=== PATIENT | male | born 1985 | race Two or more races ===

== ENCOUNTER 2021-09-28 18:44 | Emergency (ER) | payer OTHER, SELFPAY ==
[2021-09-28 18:48] VITALS: BP 143/83; PULSE 91; RESP 16; TEMP 37.1; O2SAT 98; BMI 35.7
--- NOTE | 2021-09-28 20:27 | ED_ITS ---
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 Patient tells me he slipped on the ice causing an abduction injury of the left hip. Patient reports since then he feels a pulling sensation and pain in his left groin. There was no fall to the ground. There was no head strike or loss of consciousness. Related Data Previous Rx's Medication Instructions Recorded cyclobenzaprine 10 mg tablet 10 mg PO TID PRN #10 tab 09/28/21 Allergies Allergy/AdvReac Type Severity Reaction Status Date / Time amoxicillin Allergy Unknown SWELLING Unverified 05/11/20 15:25 [AMOXICILLIN] Amoxicillin Allergy Unknown Uncoded 05/14/12 00:00 Review of Systems Verdana 4l Review of Systems: Verdana 4d Yes all other systems are reviewed and are negative Verdana 4l Constitutional: Verdana 4d Verdana 4d Constitutional: Verdana 4d Reports no additional constitutional complaints, Denies body ache(s), Denies chills, Denies fever(s), Denies headache(s) and Denies weakness Verdana 4l Eyes: Verdana 4d Verdana 4d Eyes: Verdana 4d Reports no additional eye complaints and Denies change in vision Verdana 4l ENT: Verdana 4d Reports system reviewed and no additional complaints, except as documented, Denies dizziness, Denies headache(s), Denies nasal congestion, Denies nasal discharge and Denies neck pain Verdana 4l Cardiovascular: Verdana 4d Verdana 4d Cardiovascular: Verdana 4d Reports no additional cardiovascular complaints, Denies chest pain, Denies leg edema and Denies dyspnea Verdana 4l Respiratory: Verdana 4d Verdana 4d Respiratory: Verdana 4d Reports no additional respiratory complaints, Denies cough and Denies dyspnea Verdana 4l Gastrointestinal: Verdana 4d Verdana 4d Gastrointestinal: Verdana 4d Reports no additional gastrointestinal complaints, Denies abdominal pain, Denies diarrhea, Denies nausea and Denies vomiting Verdana 4l Genitourinary: Verdana 4d Verdana 4d Genitourinary: Verdana 4d Denies urinary incontinence Verdana 4l Musculoskeletal: Verdana 4d Verdana 4d Musculoskeletal: Verdana 4d Reports no additional musculoskeletal complaints, Denies back pain, Denies arthralgias, Denies joint swelling, Denies neck pain, Denies numbness and Denies tingling Verdana 4d Comments: Verdana 4d VerdanaVerdana 4d +groin pain Integumentary/Breasts: Skin/Breast: Reports system reviewed and no additional complaints, except as docu and Denies rash Neurologic: Reports system reviewed and no additional complaints, except as documented, Denies Abnormal speech present, Denies dizziness, Denies headache(s), Denies numbness, Denies tingling and Denies weakness PMFSH Past Medical History Attestation statement: The following information was validated with the patient. Source: old records reviewed and nursing notes reviewed Social History Social History Advance Directives: No Advance Directives Information Provided: No Physical Exam Verdana 4l Vital Signs: Verdana 4d Verdana 4d Vital Signs: Verdana 4d Verdana 4Bd Last Vital Signs Verdana 4d Procurement Assistant New 4d Procurement Assistant New 4d Temp 98.7 F 09/28/21 18:48 Procurement Assistant New 4d Pulse 91 09/28/21 18:48 Procurement Assistant New 4d Resp 16 09/28/21 18:48 BP 143/83 H 09/28/21 18:48 Pulse Ox 98 09/28/21 18:48 BMI result Body Mass Index 35.7 Const: General: cooperative, healthy appearing, comfortable and no acute distress Orientation/consciousness: patient oriented x3 Limitations: no limitations HENMT: Head: Yes normal to inspection Ears: hearing grossly normal bilaterally General nose exam: Normal external nose present Face and sinus: Yes normal facial exam Mouth: Normal oral and palatal mucosa present Throat: Yes posterior oropharynx normal Eyes: General: appearance normal, both eyes and all related structures Pupils: Equal, round and reactive pupils present Neck: Neck: Yes normal visual inspection Chest: Chest palpation & inspection: normal inspection of the chest Resp: Effort & Inspection: normal respiratory effort Auscultation: clear to auscultation bilaterally Cardio: Rate: regular rate Rhythm: regular rhythm Peripheral pulses: Peripheral pulses 2+ throughout GI: Inspection: Yes normal to inspection Palpation (GI): Soft to palpation and nontender Auscultation: normal bowel sounds Back/Spine/Pelvis: Thoracic/Lumbar Spine: thoracic and lumbar spine normal to inspection Skin: General skin exam: no rashes or lesions noted Neuro: General: patient oriented x3, no focal motor deficits and normal sensation to monofilament Cranial nerves: Yes Equal, round and reactive pupils present Cognition (Neuro): normal cognition Speech: No Abnormal speech present Gait exam (Neuro): Normal gait present Motor exam (neuro): 5/5 motor strength present throughout Extrem: Other: There is tenderness of the left hip flexor which is worsened with abduction of the left lower leg, flexion of the knee and raising of the leg and direct palpation There is no bony abnormalities and there is full range of motion with no difficulty. Patient is ambulatory General: Yes normal to inspection Course Course Course Narrative: Exam is consistent with hip flexor strain secondary to slipped at work. There is no bony tenderness and there is full range of motion with no difficulty with ambulation so less likely fracture. Discussed with patient supportive care which includes heat or ice, NSAIDs at home, low-dose muscle relaxant. Recommended follow-up with were connection as this was a work related injury. Reviewed worrisome signs and symptoms of when to return to the emergency department. Comfortable discharge home. MDM - Fall MDM Narrative Medical decision making narrative: strain vs sprain Differential Diagnosis Differential diagnosis: Likely fracture Medical Records Attestation: I reviewed the patient's medical records. Lab Data Attestation: I reviewed the patient's lab results. Discharge Plan Discharge Clinical Impression: Strain of flexor muscle of left hip Patient Disposition: Home, Self-Care Instructions: Groin Strain (ED) Additional Instructions: Heat or ice Gentle stretching Follow-up with work connection [phone] Prescriptions: New cyclobenzaprine 10 mg tablet 10 mg PO TID PRN (Reason: muscle spasm) Qty: 10 0RF Referrals: Physician,Unknown J [Primary Care Provider] - 2 days Stand Alone Forms: Work/School Release Interventions: ED Discharge Assessment Last Done: 09/28/21 20:25
== END 2021-09-28 20:29 | disposition home or self-care (01) ==
PROVIDERS: Emergency Provider Emergency Medicine
DX: S76.012A Strain of muscle, fascia and tendon of left hip, initial encounter (principal); W00.0XXA Fall on same level due to ice and snow, initial encounter; Y93.89 Activity, other specified; Y92.410 Unspecified street and highway as the place of occurrence of the external cause; Y99.0 Civilian activity done for income or pay
CPT/HCPCS: 99283

== ENCOUNTER → 2021-10-01 08:33 | Outpatient (BNVA) | payer OTHER, SELFPAY | PROVIDERS: Visit Provider Internal Medicine | DX: S39.011A Strain of muscle, fascia and tendon of abdomen, initial encounter (principal); W01.0XXA Fall on same level from slipping, tripping and stumbling without subsequent striking against object, initial encounter; Z96.642 Presence of left artificial hip joint | CPT/HCPCS: 99202 ==

== ENCOUNTER → 2022-02-11 14:18 | Outpatient (BNVA) | payer OTHER, SELFPAY | PROVIDERS: Visit Provider Physician Assistant Medical | DX: S16.1XXA Strain of muscle, fascia and tendon at neck level, initial encounter (principal); S39.012A Strain of muscle, fascia and tendon of lower back, initial encounter; V09.00XA Pedestrian injured in nontraffic accident involving unspecified motor vehicles, initial encounter | CPT/HCPCS: 99203 ==

== ENCOUNTER → 2022-02-14 08:08 | Outpatient (BNVA) | payer OTHER, SELFPAY | PROVIDERS: Visit Provider Physician Assistant Medical | DX: S16.1XXA Strain of muscle, fascia and tendon at neck level, initial encounter (principal); S39.012A Strain of muscle, fascia and tendon of lower back, initial encounter; V09.00XA Pedestrian injured in nontraffic accident involving unspecified motor vehicles, initial encounter | CPT/HCPCS: 99213 ==

== ENCOUNTER 2025-02-10 11:26 | Outpatient (AMB) | payer BC, SELFPAY ==
--- OUTSIDE RECORDS SUMMARY | 2025-01-28 05:30 | XMS_ITS | Encounter Summary ---
Author Name [facility] Organization [facility] Address [address] [place] [address] Care Team Providers Care Ward Maid Name Role Phone ALICE BEARDEN Primary Care Provide r Unavailable Insurance Providers: All historical and current Section Date Range: From patient's date of to the date document was created. This section includes the names of all active insurance providers for the patient. Insurance Provider Type of Coverage Plan Name Start of Policy Coverage End of Policy Coverage Group Number Member ID Insurance Provider's Telephone Number Policy Bustos's Name Patient's Relationship to Policy Bustos [place] [facility] Mar 18, 2020 [id number] CARMELITA [employer] BCBS [facility] ORGANIZAT ION [facility] Mar 18, 2020 [id number] CARMELITA [employer] [place] [employer] [place] Aug 25, 2022 [id number] CARMELITA [employer] [place] [employer] [facility] Aug 25, 2022 [id number] [employer]MELITA [employer] Selected Encounter This section includes the information on record at MD for the Encounter. Date/Time Encounter Type Encounter Description Reason Provider Source Jan 28, 2025 09:30 AM Outpatient Encounter PRIMARY CARE/MEDICINE ICD-10-CM Z00.8 Encounter for other general examination ALICE SMITH Ophelia Encounter Template Text not used by MD Assessments - Encounter Diagnoses This section includes the primary and secondary diagnoses documented for the Encounter. Date/Time Primary/Secondary Diagnosis Diagnosis Name Provider Source Jan 29, 2025 11:30 PM PRIMARY Encounter for other general examination ALICE SU EMMETT Jan 29, 2025 11:30 PM SECONDARY Chronic fatigue, unspecified LIO TOPETE,ALICE Hinojosa EMMETT Jan 29, 2025 11:30 PM SECONDARY Hyperlipidemia, unspecified ALICE SU EMMETT Jan 29, 2025 11:30 PM SECONDARY Pain in left hip ALICE SU EMMETT Jan 29, 2025 11:30 PM SECONDARY Sleep apnea, unspecified ALICE SU EMMETT Plan of Treatment: Future Appointments (+ 6 months) and Future Tests (+/- 45 days) The Plan of Treatment section includes future care activities for the [facility] This section includes future appointments and future orders which are active, pending or scheduled. Future Appointments This section includes appointments that were scheduled to occur 6 months from the date of the Encounter, up to a maximum of 20 appointments. The data comes from all MD treatment facilities. Appointment Date/Time Appointment Type Appointme nt Facility Name Feb 10, 2025 01:00 PM AMBUL[facility] Active, Pending, and Scheduled Orders This section includes a listing of several types of active, pending, and scheduled orders, including clinic medications orders, diagnostic test orders, procedure orders and consult orders; where the start date of the order is 45 days before the date of the Encounter or 45 days after the date of theEncounter. The data comes from all MD treatment facilities. Test Date/Time Test Type Test Details Facility Name Jan 28, 2025 12:00 AM Laboratory - Chemi stry Order TOTAL TESTOSTERONE BLOOD (SST-SERUM) [facility] Feb 01, 2025 10:52 AM Consult Order [facility]-SLEEP MEDICINE Cons Ratings Analyst's Choice EMMETT Vital Signs: All taken on the encounter date This section contains inpatient and outpatient Vital Signs collected on the date of the Encounter. Date/Time Temperature Pulse Blood Pressure Respiratory Rate SP02 Pain Height Weight Body Mass Index Source Jan 28, 2025 10:07 AM 98 F 70 /min 112/73 mm[Hg] 99 % 183.4 lb 28 [facility] IELD Encounter Notes: All associated encounter notes This section contains the clinical notes associated to the Encounter. Date/Time Encounter Note(s) Provider Source Jan 29, 2025 11:31 PM ADDENDUM: LOCAL TITLE: Addendum STANDARD TITLE: ADDENDUM DATE OF NOTE: JAN 29, 2025@23:31:15 ENTRY DATE: JAN 29, 2025@23:31:16 AUTHOR: Lubna BEARDEN EXP COSIGNER: URGENCY: STATUS: COMPLETED Please assign patient to PACT 5 /es/ ALICE BEARDEN MD PHYSICIAN Signed: 01/29/2025 23:31 Receipt Acknowledged By: 01/31/2025 14:17 /es/ TAMMY Wolf [facility] Specialist --- Original Document --- 01/28/25 NOTE: Pt is 40 y/o M with PMH of NINO, HL, GERD, allergic rhinitis Initial visit with nm Other providers: --NINO managed by Eleanor Mast #CC: fatigue chronic for last year-he has been complinat with CPAP no bloody , black stools, would like his testosterone checked has 2 children sometimes ED , at one point he was on sildenafil had vasectomy 2020 #obesity - pt lost 70 lb on wegovy (01/2024-07/2024) weight was 174 lb (07/2024) since than monitoring calories 2500/day, using my fitness pal not drinking sugar containg bevarages #NION per pt severe NINO sleep study 2016- would like to get inspire, evaluated by pulmonary at [facility]- referred to ENT using CPAP but finds musk very constricting, hates tubes and patient would prefer treatment of obstructive sleep apnea without CPAP PAST MEDICAL HISTORY: --h/o Obesity lost 75 lbs on wegovy - --HL --Allergic rhinitis --NINO --GERD --Avascular necrosis of hip s/p LEFT THR replacement - Dr. Garces --Low back strain (SNOMED CT [id number]) --Alcohol Abuse quit ETOH 01/2024 when started wegovy PAST SURGICAL HISTORY: --Left THR 2019 --Right knee ACL 2004 -- vasectomy 2020 ALLERGIES: AMOXICILLIN, PHENTERMINE/TOPIRAMATE MEDICATIONS: --OTC naproxen - taking prn for hip bursitis energy drinks: sugar free red bull, protein powder FAMILY HISTORY: --DM: no --Cancer: no --CO: no --CVA: no --Mental Health/addiction: mother d at 53 of drug related seizure dad lives in [place] - not in touch with him one sister 47 obesity, DM2 brother comitted suicide at 42 SOCIAL HISTORY: --Occupation: animal park code enforcement officer in [employer] --Cohabitation: , lives with is --Children: 2 boys (14 and 4 y/o as of 2024) --Diet: well balanced --Exercise: walking limited by bursitis --Caffeine:no --EtOH:quit 01/2024 , h/o excessive use + --Tob: non smoker --MJ: denies --Illicits: denies --Sexual activity: monogamous,female --Eye: UTD --Dental: UTD --Hospitalizations:none recently ROS: Constitutional: no fever/no chills, no ns Eyes: no decreased vision/blurry vision Ears/Nose/Throat: no hearing change Respiratory: no cough/wheezing/SOB Cardiovascular: no CP /palpitations Gastrointestinal: no abdominal pain/bloody/black stools :no dysuria/hematuria/trouble voiding MSK:L hip pain ch Neuro: no dizziness/H/A Skin: no pruritus/rash PHYSICAL EXAM: Blood Pressure: 112/73 (01/28/2025 10:07) Pulse: 70 (01/28/2025 10:07) Respiration: 18 Temperature: 98 F [36.7 C] (01/28/2025 10:07) Patient Weight: BMI 28 183.4 lb [83.19 kg] (01/28/2025 10:07) max weight 250 lbs 01/2024 Gen: pleasant, engaged, NAD Chest/CV: RRR, no m/r/g Lungs: CTAB Abdomen: BS+, Soft, NT, ND Extremities: wwp, no edema LABORATORY (Discussed with the patient): CBC TREND Collection DT Spec WBC RBC HGB HCT MCV MCH PLT 12/24/2024 08:11 BLOOD 4.28 L 5.53 15.3 46.0 83.2 27.7 162 10/08/2023 09:42 BLOOD 6.63 6.19 H 16.8 50.8 H 82.1 27.1 231 07/03/2021 13:00 BLOOD 7.78 5.98 H 16.5 49.0 81.9 L 27.6 226 07/10/2020 08:53 BLOOD 7.09 5.71 H 15.7 48.8 85.5 27.5 211 07/07/2018 09:51 BLOOD 6.57 5.99 H 17.0 50.1 83.6 28.4 184 Collection DT Spec TSH 12/24/2024 08:11 SERUM 0.97 Collection DT Spec GLUCOSE BUN CREATIN Sodium K+/Pot CL CO2 12/24/2024 08:11 SERUM 90 18 1.15 138 4.2 105 24 10/08/2023 09:41 SERUM 108 H 13 1.07 140 4.4 107 24 07/03/2021 13:00 SERUM 82 16 1.12 139 4.2 104 23 07/10/2020 08:53 SERUM 113 H 15 1.13 140 4.1 104 24 07/07/2018 09:51 SERUM 102 H 15 1.12 139 4.3 103 26 LIVER PANEL TREND Collection DT Spec AST ALT T BILI ALK CHERELLE T. PROT ALBUMIN 12/24/2024 08:11 SERUM 25 34 0.6 81 6.4 4.3 04/20/2024 15:17 SERUM 68 H 113 H 0.8 86 6.8 4.4 10/08/2023 09:41 SERUM 27 69 H 0.5 86 7.0 4.1 07/03/2021 13:00 SERUM 23 50 0.9 80 7.3 4.3 07/10/2020 08:53 SERUM comment 63 H 0.3 96 7.0 4.2 LIPID PANEL TREND Collection DT Spec CHOL HDL CHO/HDL LDL-d LDL-c TRIG 12/24/2024 08:11 SERUM 225 H 51 4.4 161 H 63 04/20/2024 15:17 SERUM 153 28 L 5.5 94 157 H 10/08/2023 09:41 SERUM 308 H 35 L 8.8 230 H 215 H 07/03/2021 13:00 SERUM 237 H 35 L 6.8 161 H 203 H 07/10/2020 08:53 SERUM 216 H 36 L 6.0 149 H Reflex to dLDL 364 H TESTOSTERONE Collection DT Specimen Test Name Result Units Ref Range 07/07/2018 09:51 SERUM TestoTo 328.55 ng/dL 220 - 892 VITAMIN D TOTAL: 33.9 ASSESSMENT/PLAN: Pt is 40 y/o M with PMH of NINO, HL, GERD, allergic rhinitis # Chronic fatigue likely multifactorial, inadequately treated obstructive sleep apnea -Check fasting morning testosterone -Encouraged regular CPAP use #NINO f/w [facility] pulmonary [facility] -Consequences of untreated obstructive sleep apnea reviewed with patient #HL: LDL 161 -much improved with intentional weight loss, no family history of early CAD -Continue great weight loss efforts -Heart healthy Mediterranean diet recommended -Recommended 150 minutes of moderate cardio exercise weekly # History of elevated LFTs in the setting of obesity and excessive alcohol use normalized with weight loss, and refraining from alcohol # Left hip pain-s/p left THR 2019 -Scheduled with [facility] later this month Healthcare maintenance: --Lipids: LDL 161 () --Diabetes: --Colon CA (45-75): --Lung CA: --PSA: --AAA (smoker/65): --Influenza (yrly): --COVID: 2020 x2 --PCV20: --PCV23: 2020 --RZV (>50yrs, x2): --TDAP: 2020 --Hep B screen: 2017 immune --Hep C screen: 2023 negative --HIV screen: --DEXA: --Advanced Directives: Comanagement - prefers to have most aspects of health maintenance, chronic condition(s) and medication management to non-VA PCP. Address at next visit: Return to clinic to see me in _12__ months, sooner PRN. Virtual ( ), F2F ( x ) ( )non fasting labs ordered prior to f/u ( )fasting labs ordered prior to f/u ( )no labs needed ( )request labs from outside provider ( )request records from outside providers Medication Reconciliation: Patient reports taking no medications. Meds were not administered, prescribed, modified, nor influenced the care given at this encounter. /robert/ ALICE BEARDEN MD PHYSICIAN Signed: 01/29/2025 23:31 RAUDEL BEARDEN [facility] Jan 28, 2025 08:39 AM PHYSICIAN NOTE: LOCAL TITLE: NOTE STANDARD TITLE: PHYSICIAN NOTE DATE OF NOTE: JAN 28, 2025@08:39 ENTRY DATE: JAN 28, 2025@08:39:57 AUTHOR: Lubna BEARDEN EXP COSIGNER: URGENCY: STATUS: COMPLETED NOTE Has ADDENDA Pt is 40 y/o M with PMH of NINO, HL, GERD, allergic rhinitis Initial visit with me Other providers: --NINO managed by Eleanor Mast #CC: fatigue chronic for last year-he has been complinat with CPAP no bloody , black stools, would like his testosterone checked has 2 children sometimes ED , at one point he was on sildenafil had vasectomy 2020 #obesity - pt lost 70 lb on wegovy (01/2024-07/2024) weight was 174 lb (07/2024) since than monitoring calories 2500/day, using my fitness pal not drinking sugar containg bevarages #NINO per pt severe NINO sleep study 2017- would like to get inspire, evaluated by pulmonary at [facility]- referred to ENT using CPAP but finds musk very constricting, hates tubes and patient would prefer treatment of obstructive sleep apnea without CPAP PAST MEDICAL HISTORY: --h/o Obesity lost 75 lbs on wegovy - --HL --Allergic rhinitis --NINO --GERD --Avascular necrosis of hip s/p LEFT THR replacement - Brothers --Low back strain (SNOMED CT [id number]) --Alcohol Abuse quit ETOH 01/2024 when started wegovy PAST SURGICAL HISTORY: --Left THR 2019 --Right knee ACL 2004 -- vasectomy 2020 ALLERGIES: AMOXICILLIN, PHENTERMINE/TOPIRAMATE MEDICATIONS: --OTC naproxen - taking prn for hip bursitis energy drinks: sugar free red bull, protein powder FAMILY HISTORY: --DM: no --Cancer: no --CO: no --CVA: no --Mental Health/addiction: mother d at 53 of drug related seizure dad lives in [place] - not in touch with him one sister 47 obesity, DM2 brother comitted suicide at 42 SOCIAL HISTORY: --Occupation: animal park code enforcement officer in [employer] --Cohabitation: , lives with is --Children: 2 boys (14 and 4 y/o as of 2024) --Diet: well balanced --Exercise: walking limited by bursitis --Caffeine:no --EtOH:quit 01/2024 , h/o excessive use + --Tob: non smoker --MJ: denies --Illicits: denies --Sexual activity: monogamous,female --Eye: UTD --Dental: UTD --Hospitalizations:none recently ROS: Constitutional: no fever/no chills, no ns Eyes: no decreased vision/blurry vision Ears/Nose/Throat: no hearing change Respiratory: no cough/wheezing/SOB Cardiovascular: no CP /palpitations Gastrointestinal: no abdominal pain/bloody/black stools :no dysuria/hematuria/trouble voiding MSK:L hip pain ch Neuro: no dizziness/H/A Skin: no pruritus/rash PHYSICAL EXAM: Blood Pressure: 112/73 (01/28/2025 10:07) Pulse: 70 (01/28/2025 10:07) Respiration: 18 Temperature: 98 F [36.7 C] (01/28/2025 10:07) Patient Weight: BMI 28 183.4 lb [83.19 kg] (01/28/2025 10:07) max weight 250 lbs 01/2024 Gen: pleasant, engaged, NAD Chest/CV: RRR, no m/r/g Lungs: CTAB Abdomen: BS+, Soft, NT, ND Extremities: wwp, no edema LABORATORY (Discussed with the patient): CBC TREND Collection DT Spec WBC RBC HGB HCT MCV MCH PLT 12/24/2024 08:11 BLOOD 4.28 L 5.53 15.3 46.0 83.2 27.7 162 10/08/2023 09:42 BLOOD 6.63 6.19 H 16.8 50.8 H 82.1 27.1 231 07/03/2021 13:00 BLOOD 7.78 5.98 H 16.5 49.0 81.9 L 27.6 226 07/10/2020 08:53 BLOOD 7.09 5.71 H 15.7 48.8 85.5 27.5 211 07/07/2018 09:51 BLOOD 6.57 5.99 H 17.0 50.1 83.6 28.4 184 Collection DT Spec TSH 12/24/2024 08:11 SERUM 0.97 Collection DT Spec GLUCOSE BUN CREATIN Sodium K+/Pot CL CO2 12/24/2024 08:11 SERUM 90 18 1.15 138 4.2 105 24 10/08/2023 09:41 SERUM 108 H 13 1.07 140 4.4 107 24 07/03/2021 13:00 SERUM 82 16 1.12 139 4.2 104 23 07/10/2020 08:53 SERUM 113 H 15 1.13 140 4.1 104 24 07/07/2018 09:51 SERUM 102 H 15 1.12 139 4.3 103 26 LIVER PANEL TREND Collection DT Spec AST ALT T BILI ALK CHERELLE T. PROT ALBUMIN 12/24/2024 08:11 SERUM 25 34 0.6 81 6.4 4.3 04/20/2024 15:17 SERUM 68 H 113 H 0.8 86 6.8 4.4 10/08/2023 09:41 SERUM 27 69 H 0.5 86 7.0 4.1 07/03/2021 13:00 SERUM 23 50 0.9 80 7.3 4.3 07/10/2020 08:53 SERUM comment 63 H 0.3 96 7.0 4.2 LIPID PANEL TREND Collection DT Spec CHOL HDL CHO/HDL LDL-d LDL-c TRIG 12/24/2024 08:11 SERUM 225 H 51 4.4 161 H 63 04/20/2024 15:17 SERUM 153 28 L 5.5 94 157 H 10/08/2023 09:41 SERUM 308 H 35 L 8.8 230 H 215 H 07/03/2021 13:00 SERUM 237 H 35 L 6.8 161 H 203 H 07/10/2020 08:53 SERUM 216 H 36 L 6.0 149 H Reflex to dLDL 364 H TESTOSTERONE Collection DT Specimen Test Name Result Units Ref Range 07/07/2018 09:51 SERUM TestoTo 328.55 ng/dL 220 - 892 VITAMIN D TOTAL: 33.9 ASSESSMENT/PLAN: Pt is 40 y/o M with PMH of NINO, HL, GERD, allergic rhinitis # Chronic fatigue likely multifactorial, inadequately treated obstructive sleep apnea -Check fasting morning testosterone -Encouraged regular CPAP use #NINO f/w [facility] -Consequences of untreated obstructive sleep apnea reviewed with patient #HL: LDL 161 -much improved with intentional weight loss, no family history of early CAD -Continue great weight loss efforts -Heart healthy Mediterranean diet recommended -Recommended 150 minutes of moderate cardio exercise weekly # History of elevated LFTs in the setting of obesity and excessive alcohol use normalized with weight loss, and refraining from alcohol # Left hip pain-s/p left THR 2019 -Scheduled with [facility] later this month Healthcare maintenance: --Lipids: LDL 161 () --Diabetes: --Colon CA (45-75): --Lung CA: --PSA: --AAA (smoker/65): --Influenza (yrly): --COVID: 2020 x2 --PCV20: --PCV23: 2020 --RZV (>50yrs, x2): --TDAP: 2020 --Hep B screen: 2017 immune --Hep C screen: 2023 negative --HIV screen: --DEXA: --Advanced Directives: Comanagement - prefers to have most aspects of health maintenance, chronic condition(s) and medication management to non-VA PCP. Address at next visit: Return to clinic to see me in _12__ months, sooner PRN. Virtual ( ), F2F ( x ) ( )non fasting labs ordered prior to f/u ( )fasting labs ordered prior to f/u ( )no labs needed ( )request labs from outside provider ( )request records from outside providers Medication Reconciliation: Patient reports taking no medications. Meds were not administered, prescribed, modified, nor influenced the care given at this encounter. /robert/ ALICE BEARDEN MD PHYSICIAN Signed: 01/29/2025 23:31 01/29/2025 ADDENDUM STATUS: COMPLETED Please assign patient to PACT 5 /robert/ ALICE BEARDEN MD PHYSICIAN Signed: 01/29/2025 23:31 Receipt Acknowledged By: * AWAITING SIGNATURE * TAMMY CRYSTAL OGNJE NKA M EMMETT
--- NOTE | 2025-02-10 11:31 | A.OFFPC_ITS ---
Vital Signs 02/10/25 11:37 Height 5 ft 8 in Weight 182 lb BMI 27.7 BP 122/70 Blood Pressure Location Lt brachial Position Sitting Respiration 12 Pulse 68 Pulse Source Pulse Oximeter Temp 97.3 F Temp Source Oral Pulse Oximetry (%) 98 Oxygen Delivery Method Room Air Intake Visit Reasons: CPE? Intake Note: New patient to establish care and cpe. Captain Room Service Required: No Allergies amoxicillin (AMOXICILLIN) Allergy (Unknown, Verified 02/10/25 11:53) SWELLING Amoxicillin Allergy (Severe, Uncoded 02/10/25 11:32) Hives Medication List - Last Reconciled 02/10/25 by MIKE Camarena- No Known Home Meds Tobacco use date assessed: 02/10/25 Dental Screening Dental Screen Date: 02/10/25 Did you have a dental visit in the last 12 months?: Yes Did you have a dental problem in the last 6 months where you did not have access to dental care?: No Was dental information given to patient?: Patient has dentist HPI HPI Comments History of Present Illness Details 40 y/o M with NINO on CPAP, low wbc, nubia vated cholesterol Social: [employer] Surgery: R knee ACL repair, L hip replacement Health Maintenance: Tdap thinks [facility] Dr Monique Fritz - manages CPAP Here today to est care, for a CPE No records - [facility] NINO on [facility] managed by Dr Fritz Wantrobert to stop using machine Requesting ENT referral L hip replacement, has bursitis, getting cortisone injections NEOS Wants a Testosterone boost Will be having this done through [facility] Willing to pay out of pocket. All labs managed by [facility] Reports low wbc & high chol otherwise no concerns Constitutional: Denies fever. Skin: Denies rash. Eye: Denies eye pain. ENMT: Denies sore throat and nasal congestion. Respiratory: Denies shortness of breath and cough. Gastrointestinal: Denies nausea, vomiting or abdominal pain. Cardiovascular: Denies chest pain and syncope. Genitourinary: Denies dysuria. Musculoskeletal: Denies back pain and extremity pain. Neurologic: Denies headaches, confusion, and weakness. Psychiatric: Denies suicidal thoughts and substance abuse. Allergy/ Immunologic: Denies impaired immunity. General: Well developed, well nourished, in no acute distress. Appears stated age. Head: Normocephalic, atraumatic. Eyes: Pupils are equal, round and reactive to light and accommodation. Conjunctivae are clear. Vision grossly normal. Ears: TMs clear AU, EACS WNL Nose: Patent, without discharge. Mouth: There are no ulcers or lesions noted. No inflammation, no post nasal drip, no plaques nor exudates. Neck: Supple, no adenopathy or thyromegaly. Lungs: Clear to auscultation bilaterally. No rales, rhonchi or wheeze noted. Good air flow in all jo. Heart: Regular rate and rhythm. No murmurs, click, rubs or gallops are noted. Abdomen: Bowel sounds present in all quadrants. The abdomen is soft, nontender, with no masses or organomegaly noted. No hernias are noted. Musculoskeletal: Joints are nontender, without swelling, redness, or effusions. Range of motion is observed to be normal. Pulses: Peripheral pulses are equal and palpable bilaterally. Extremities: No clubbing, cyanosis nor edema is noted. Neurologic: Gait and station normal. Cranial Nerves 2-12 intact. Motor strength grossly symmetrical and intact. No sensory loss. Balance normal. Skin: No rashes, ulcers, or lesions noted. Turgor is good. Skin color is good. Hair and nails are without abnormalities. Psych: Normal eye contact, affect and mood appropriate, and normal interactions. Patient is alert and appropriate to context. Plan: [facility] He will get me records from [place] to review. RTO 1 year CPE sooner PRN An additional 30 minutes was spent addressing the problem(s) noted at todays visit. This includes time spent before the visit reviewing the chart, time spent during the visit, and time spent after the visit on documentation reviewing laboratory results, diagnostic imaging, medications, performing a medically necessary evaluation, counseling on diagnoses, care coordination, ordering appropriate tests, ordering appropriate medications, review of tests performed by other providers, reporting test results with the patient, communication with other healthcare providers. [facility] Medical History (Updated 02/10/25 @ 12:12 by KRISTYN Camarena) Arthritis CPAP (continuous positive airway pressure) dependence (~2019) Surgical History (Updated 02/10/25 @ 12:01 by KRISTYN Camarena) H/O knee surgery History of hip replacement Family History (Updated 02/10/25 @ 11:42 by Lisseth Hagan MA) Mother Asthma High cholesterol Father Substance abuse Social History (Updated 02/10/25 @ 11:40 by Lisseth Hagan MA) Household Members: Spouse and Children Both parents involved: No Caregiver staying overnight: No Housing: House Are you a primary critical care nurse specialist to a significant other at home: Yes Do you presently have visiting nurse or other home services: No 75 years or older and lives alone: No Alcohol intake: never Patient Tobacco Use Status: Never used Tobacco e-Cigarette/Vaping Use: Never Used Second Hand Smoke Exposure: No Current occupational status: employed Current occupation: police specialist Cognitive needs: No Hearing needs: No Vision needs: No Questionnaire PHQ-9 Over the last 2 weeks, how often have you been bothered by any of the following problems? 1. Little interest or pleasure in doing things: not at all 2. Feeling down, depressed, or hopeless: not at all 3. Trouble falling or staying asleep, or sleeping too much: not at all 4. Feeling tired or having little energy: not at all 5. Poor appetite or overeating: not at all 6. Feeling bad about yourself - or that you are a failure or have let yourself or your family down: not at all 7. Trouble concentrating on things, such as reading the newspaper or watching television: not at all 8. Moving or speaking so slowly that other people could have noticed. Or the opposite - being so fidgety or restless that you have been moving around a lot more than usual: not at all 9. Thoughts that you would be better off or of hurting yourself in some way: not at all Total score: 0 Depression Screening Interpretation: Negative Depression Screening Done: Yes 94692 - PHQ-9 Billing: Yes Source: Developed by Drs. Chino Song, Dee Brock, Shine Gomez and colleagues, with an educational jean pierre from [employer]. Thrive Questionnaire Date Thrive assessed: 02/10/25 I am a: Patient What is your living situation today?: I have a steady place to live Within the past 12 months, did the food you bought not last and you didn't have the money to get more?: Never true Within the past 12 months, did you worry whether your food would run out before you got money to buy more?: Never true Do you have trouble paying for medicines?: No Do you have trouble getting transportation to medical appointments?: No Do you have trouble paying your heating and electricity bill?: No Do you have trouble taking care of your child, family member or friend?: No Do you have trouble with day-to-day activities such as bathing, preparing meals, shopping, managing finances, etc.?: No Are you currently unemployed and looking for a job?: No Are you interested in more education?: No Please select the resources that you would like help with: None Currently or been in a relationship where the following occur: No concerns reported THRIVE Score: 0 AUDIT C Alcohol Use Questionnaire (AUDIT-C) 1. How often do you have a drink containing alcohol?: Never 2. How many drinks containing alcohol do you have on a typical day when you are drinking?: 1 or 2 3. How often do you have six or more drinks on one occasion?: Never Total Score: 0 Score Reviewed/Action Taken: Yes REMY-7 AMB Questionnaire REMY-7 Date REMY - 7 assessed: 02/10/25 Feeling nervous, anxious, or on edge: 1 = Several days Not being able to stop or control worryin = Nearly every day Worrying too much about different things: 2 = More than half the days Trouble relaxin = More than half the days Being so restless that it is hard to sit still: 2 = More than half the days Becoming easily annoyed or irritable: 2 = More than half the days Feeling afraid as if something awful might happen: 0 = Not at all Total REMY-7 score (0-4 normal; 5-9 mild; 10-14 moderate; 15-21 severe): 12 Source: Developed by Drs. Chino Song, Dee Brock, Shine Gomez and colleagues, with an educational jean pierre from [employer]. REMY-7 Assessment Billing REMY-7 Assessment Tool: REMY-7 Assessment 15009 Physical exam (Primary Care) Vital Signs: Last Vital Signs Temp 97.3 F 02/10/25 11:37 Pulse 68 02/10/25 11:37 Resp 12 02/10/25 11:37 BP 122/70 02/10/25 11:37 Pulse Ox 98 02/10/25 11:37 Oxygen Delivery Method Room Air 02/10/25 11:37 BMI result Body Mass Index 27.7 Tobacco/Smoking Status: Tobacco use Status Tobacco use date assessed 02/10/25 02/10/25 11:42 Patient Tobacco Use Status Never used Tobacco 02/10/25 11:42 e-Cigarette/Vaping Use Never Used 02/10/25 11:42 PHQ-9: PHQ-9 Score PHQ-9: Total score 0 02/10/25 11:42 Depression Screening Interpretation: Negative Thrive Assessment: Date of Thrive Assessment Date Thrive assessed 02/10/25 02/10/25 11:42 Currently or been in a relationship where the following occur: No concerns reported Coding Level of Care Code New Pt Level 3 (13835) New Pt Prev Care 40-64y(75676) Diagnoses Encounter to establish care Z76.89 NINO on CPAP G47.33 Moderate mixed hyperlipidemia not requiring statin therapy E78.2 Hyperlipidemia type: moderate mixed hyperlipidemia not requiring statin therapy Trochanteric bursitis of left hip M70.62 Hip bursitis location: trochanteric bursitis 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 Leukopenia type: neutropenia Neutropenia type: cyclic Encounter for general adult medical examination with abnormal findings Z00.01 Additional Codes REMY-7 Assessment Billing - REMY-7 Assessment Tool: REMY-7 Assessment 48351 ([id number]) PHQ-9 - 90358 - PHQ-9 Billing: Yes ([id number]) Assessment & Plan Assessment & Plan (1) Encounter to establish care: Code(s): Z76.89 - Persons encountering health services in other specified circumstances (2) NINO on CPAP: Code(s): G47.33 - Obstructive sleep apnea (adult) (pediatric) Category: Medical (3) HLD (hyperlipidemia): Code(s): E78.5 - Hyperlipidemia, unspecified Category: Medical Qualifiers: Hyperlipidemia type: moderate mixed hyperlipidemia not requiring statin therapy Qualified Code(s): E78.2 - Mixed hyperlipidemia (4) Hip bursitis, left: Code(s): M70.72 - Other bursitis of hip, left hip Category: Medical Qualifiers: Hip bursitis location: trochanteric bursitis Qualified Code(s): M70.62 - Trochanteric bursitis, left hip (5) Leukopenia: Code(s): D72.819 - Decreased white blood cell count, unspecified Category: Medical Qualifiers: Leukopenia type: neutropenia Neutropenia type: cyclic Qualified Co de(s): D70.4 - Cyclic neutropenia (6) Encounter for general adult medical examination with abnormal findings: Code(s): Z00.01 - Encounter for general adult medical examination with abnormal findings Category: Medical Plan . Orders: Referrals Ear/Nose/Throat Referral G47.33 - Obstructive sleep apnea (adult) (pediatric) Medications: Discontinued cyclobenzaprine Discontinued Reason: Patient no longer taking 10 mg PO TID PRN 10 tabs 0RF muscle spasm Patient Instructions: Walk-In Care (Urgent Care): We Make it Easy Walk-in for urgent medical issues such as: ? Seasonal Allergies ? Insect Bites ? Cough ? Diarrhea ? Acute Asthma Attacks ? Back, Knee or Joint Pain ? Ear Infection ? Fever without a Rash ? Headaches ? Nausea ? [place] [facility], Rash or Skin Irritation ? Sore Throat ? Sports Physicals ? Vomiting Most insurances are accepted. Patients do not need to be part of the [facility] to seek care at the walk-in clinic. Locations [address] [place] [address] [place] [address] ? [phone] [facility] Walk-In Care in [place] provides services to ages 18 and over. Open Friday-Friday: 8 a.m. to 5 p.m. and Friday: 9 a.m. to 3 p.m.* *Hours may vary due to staffing availability. To confirm Walk-In Care hours in [place], please call [phone]. [address] [place] [address] ? [phone] [facility] Walk-In Care in [place] provides services to ages 12 and over. Open Friday-Friday: 8 a.m. to 5 p.m. Hours may vary due to staffing availability. To confirm Walk-In Care hours in [place], please call [phone]. LABORATORY SERVICES: [facility] Lab ? Primary Location [address] [place] [address] Friday through Friday 6:00 AM ? 5:00 PM Friday 7:00 AM ? 11:00 AM* [phone] The [facility] Lab is centrally located near the front entrance of the Medical Center for easy outpatient access. Convenient parking is provided for outpatients. *Hours may vary due to staffing availability. To confirm Laboratory hours for an y location, please call [phone]. Offsite Location For your convenience, we offer offsite laboratory draw stations at the following locations: [address] [facility], [place] [address], [address], [place] Friday through Friday 7:30 AM ? 1:00 PM* [phone] *Hours may vary due to staffing availability. To confirm Laboratory hours for any location, please call [phone]. [place] ? [address] [facility], [place] Friday through Friday 6:00 AM ? 3:30 PM* Friday 6:30 AM ? 3 PM* [phone] *Hours may vary due to staffing availability. To confirm Laboratory hours for any location, please call [phone] [place] [address] Friday through Friday 7:30 AM ? 4:00 PM* [phone] *Hours may vary due to staffing availability. To confirm Laboratory hours for any location, please call [phone] [place] [address] Friday through 9:00 AM ? 4:00 PM* *Hours may vary due to staffing availability. To confirm Laboratory hours for any location, please call [phone]. Appointments are not necessary. Walk-ins are welcome. Like all the departments throughout the [facility], our Lab undergoes frequent reviews to ensure the quality and accuracy of test results, and our staff takes special pride in its status as a nationally accredited facility. Patient Portal: ONE PATIENT. ONE RECORD. BETTER CARE. [facility] has a fully integrated, cutting- edge mobile electronic health information system that has revolutionized the way we care for our patients and manage our organization. This system improves communication and coordination enabling us to provide safe, higher-quality care, and an overall positive experience for staff and patients. Our first priority, as always, is to deliver the highest quality care possible. The system is running in the background supporting that priority. This portal is for all [facility] services and practices. If you are experiencing any technical difficulties with enrolling or logging into the Patient Portal please complete the [facility] Patient Portal Technical Support Form. [facility] now offers a new secure on-line interactive tool for patients to review their health information ? ?Patient Portal. This interactive web portal will enable patients and their families to take an active role in their care by providing easy, secure access to their health information via the internet. The Patient Portal provides patients with instant access to their health information, including laboratory results, medications, allergies, demographic information, visit history, and more. In addition to managing their own care, parents and health care proxies with authorized consent will appreciate the ability to access the records of those individuals for whom they provide care. Please note: if you wish to gain access (Proxy) to another patient?s portal, you will be required to come to the Medical Records Department in person at [facility]. Both the patient giving proxy access and the proxy will need to provide photo identification and complete the appropriate authorization. The Patient Portal also allows track their appointments online. The [facility] Patient Portal also saves patients time by allowing them to submit updates to their demographic and contact information prior to their visits. Portal email notifications will also alert patients to any new activity on their portal, such as test results and new appointments. In order to initially enroll in the [facility] Patient Portal, you will need to enter some required information including the following: * your [facility] Medical Record number * your personal home email address * name * date of Please note: In order to enroll in the [facility] Patient Portal, we need to have your email address on file in your electronic medical record. ?The email address needs to be specific for one person (yourself) in order for your Portal enrollment to be successful. ?You can update your email address in person with our Registration staff when you are registering for a hospital visit. ?Otherwise, you will need to come to the Health Information Management (Medical Records) Department at [facility]. ?We are open from Friday ? Friday from 7:30 a.m. ? 4:30 p.m. ?You will be required to present a photo id. Once you have successfully enrolled in the Patient Portal, you will receive a one-time user id and password for the Portal, sent to your email address. ?This will allow you to log into the Patient Portal within 99 hrs and reset your own logon id and password, and define personal security questions. ?Once your permanent login and password have been set, you can log into the [facility] Patient Portal at any time via the blue button above or from the Portal Logon button on any page of the [facility] website. [facility] encourage all of our patients to enroll in Patient Portal as it presents a valuable opportunity for patients and their families to actively participate in their care and stay healthy Welcome to [facility]. ?We look forward to working with you. Health screenings for men You should visit your health care provider regularly, even if you feel healthy. The purpose of these visits is to: Screen for medical issues Assess your risk for future medical problems Encourage a healthy lifestyle Update vaccinations and other preventive care services Help you get to know your provider in case of an illness Information Even if you feel fine, you should still see your provider for regular checkups. These visits can help you avoid problems in the future. For example, the only way to find out if you have high blood pressure is to have it checked regularly. High blood sugar and high cholesterol level also may not have any symptoms in the early stages. Simple blood tests can check for these conditions. There are specific times when you should see your provider or receive specific health screenings. The [place] Preventive Services Task Force publishes a list of recommended screenings. Below are screening guidelines for men ages 40 to 64. BLOOD PRESSURE SCREENING Have your blood pressure checked at least once every year. Watch for blood pressure screenings in your area. Ask your provider if you can stop in to have your blood pressure checked. Ask your provider if you need your blood pressure checked more often if: You have diabetes, heart disease, kidney problems, or are overweight or have certain other health conditions You have a first-degree relative with high blood pressure You are Black Your blood pressure top number is from 120 to 129 mm Hg, or the bottom number is from 70 to 79 mm Hg If the top number is 130 mm Hg or greater or the bottom number is 80 mm Hg or greater, this is considered stage 1 hypertension. Schedule an appointment with your provider to learn how you can lower your blood pressure. Effects of age on blood pressure CHOLESTEROL SCREENING Cholesterol screening should begin at age 35 for men with no known risk factors for coronary heart disease. Repeat cholesterol screening should take place: Every 5 years for men with normal cholesterol levels More often if changes occur in lifestyle (including weight gain and diet) More often if you have diabetes, heart disease, kidney problems, or certain other conditions COLORECTAL CANCER SCREENING If you are under age 45, talk to your provider about getting screened. You may need to be screened if you have a strong family history of colon cancer or polyps. Screening may also be considered if you have risk factors such as a history of inflammatory bowel disease or polyps. If you are age 45 to 75, you should be screened for colorectal cancer. There are several screening tests available: A stool-based fecal occult blood (gFOBT) or fecal immunochemical test (FIT) every year A stool sDNA test every 1 to 3 years Flexible sigmoidoscopy every 5 years or every 10 years with stool testing FIT done every year CT colonography (virtual colonoscopy) every 5 years Colonoscopy every 10 years You may need a colonoscopy more often if you have risk factors for colorectal cancer, such as: Ulcerative colitis A personal or family history of colorectal cancer A history of growths in your colon called adenomatous polyps DENTAL EXAM Go to the dentist once or twice every year for an exam and cleaning. Your dentist will evaluate if you have a need for more frequent visits. DIABETES SCREENING All adults who do not have risk factors for diabetes should be screened starting at age 35 and repeated every 3 years. If you have other risk factors for diabetes, such as a first degree relative with diabetes, overweight or obesity, high blood pressure, prediabetes, or a history of heart disease, you may be tested more often. If you are overweight and have other risk factors, such as high blood pressure and are planning to become , screening is recommended. EYE EXAM Have an eye exam every 2 to 4 years ages 40 to 54 and every 1 to 3 years ages 55 to 64. Your provider may recommend more frequent eye exams if you have vision problems or glaucoma risk. Have an eye exam that includes an examination of your retina (back of your eye) at least every year if you have diabetes. IMMUNIZATIONS Commonly needed vaccines include: Flu shot: get one every year COVID-19 vaccine: ask your provider what is best for you Tetanus-diphtheria and acellular pertussis (Tdap) vaccine: have as one of your tetanus-diphtheria vaccines if you did not receive it as an adolescent Tetanus-diphtheria: have a booster (or Tdap) every 10 years Varicella vaccine: receive 2 doses if you never had chickenpox or the varicella vaccine and were born in 1980 or after Hepatitis B vaccine: receive 2, 3, or 4 doses, depending on your exact circumstances, if you did not receive these as a child or adolescent, until age 59 Shingles (herpes zoster) vaccine: at or after age 50 Ask your provider if you should receive other immunizations, especially if you have certain medical conditions, such as diabetes or are at increased risk for some diseases such as pneumonia. INFECTIOUS DISEASE SCREENING Screening for hepatitis C: all adults ages 18 to 79 should get a one-time test for hepatitis C. Screening for human immunodeficiency virus (HIV): all people ages 15 to 65 should get a one-time test for HIV. Depending on your lifestyle and medical history, you may need to be screened for infections such as syphilis, chlamydia, and other infections. LUNG CANCER SCREENING You should have an annual screening for lung cancer with low-dose computed tomography (LDCT) if: You are age 50 to 80 years AND You have a 20 pack-year smoking history AND You currently smoke or have quit within the past 15 years OSTEOPOROSIS SCREENING If you are age 50 to 64 and have risk factors for osteoporosis, you should discuss screening with your provider. Risk factors can include long-term steroid use, low body weight, smoking, heavy alcohol use, having a fracture after age 50, or a family history of hip fracture or osteoporosis. Osteoporosis PHYSICAL EXAM All adults should visit their provider from time to time, even if they are healthy. The purpose of these visits is to: Screen for diseases Assess risk of future medical problems Encourage a healthy lifestyle Update vaccinations and other preventive care services Maintain a relationship with a provider in case of an illness Your height, weight, and body mass index (BMI) should be checked at every exam. During your exam, your provider may ask you about: Depression and anxiety Diet and exercise Alcohol and tobacco use Safety, such as use of seat belts and smoke detectors Your medicines and risk for interactions PROSTATE CANCER SCREENING If you're 55 through 69 years old, before having the test, talk to your provider about the pros and cons of having a PSA test. Ask about: Whether screening decreases your chance of dying from prostate cancer. Whether there is any harm from prostate cancer screening, such as side effects from testing or overtreatment of cancer when discovered. Whether you have a higher risk of prostate cancer than others. If you are age 55 or younger, screening is not generally recommended. You should talk with your provider about if you have a higher risk for prostate cancer. Risk factors include: Having a family history of prostate cancer (especially a brother or father) Being If you choose to be tested, the PSA blood test is repeated over time (yearly or less often), though the best frequency is not known. Prostate examinations are no longer routinely done on men with no symptoms. Prostate cancer SKIN EXAM Your provider may check your skin for signs of skin cancer, especially if you're at high risk. People at high risk include those who have had skin cancer before, have close relatives with skin cancer, or have a weakened immune system. TESTICULAR EXAM The [place] Preventive Services Task Force (USPSTF) now recommends against performing testicular self-exams. Doing testicular self-exams has been shown to have little to no benefit.
[2025-02-10 11:37] VITALS: BP 122/70; PULSE 68; RESP 12; TEMP 36.3; O2SAT 98; BMI 27.7
== END 2025-02-10 12:08 | disposition home or self-care (01) ==
LOC: HO.HMCFM 11:28
PROVIDERS: PCP Nurse Practitioner Family; Visit Provider Nurse Practitioner Family
DX: Z00.01 Encounter for general adult medical examination with abnormal findings (principal); D70.4 Cyclic neutropenia; Z76.89 Persons encountering health services in other specified circumstances; G47.33 Obstructive sleep apnea (adult) (pediatric); E78.2 Mixed hyperlipidemia; M70.62 Trochanteric bursitis, left hip

== ENCOUNTER → 2025-02-10 11:26 | Outpatient (BNVA) | payer BC, OTHER, SELFPAY | PROVIDERS: PCP Nurse Practitioner Family; Visit Provider Nurse Practitioner Family | DX: Z00.01 Encounter for general adult medical examination with abnormal findings (principal); G47.33 Obstructive sleep apnea (adult) (pediatric); E78.00 Pure hypercholesterolemia, unspecified; E78.2 Mixed hyperlipidemia; M70.62 Trochanteric bursitis, left hip; D70.4 Cyclic neutropenia; Z99.89 Dependence on other enabling machines and devices; Z96.642 Presence of left artificial hip joint; Z76.89 Persons encountering health services in other specified circumstances | CPT/HCPCS: 96127 ==

== ENCOUNTER 2025-03-04 14:56 | Outpatient (AMB) | payer BC, SELFPAY ==
--- OUTSIDE RECORDS SUMMARY | 2025-03-04 14:58 | XMS_ITS | Clinical Summary ---
Author Organization [facility] Address [address] [place] [address] Phone Care Team Providers Care Roll Tester Name Role Phone Vince Cancino MD Primary Care Provider [phone] Allergies Active Allergy Reactions Criticality Noted Date Comments Amoxicillin Swelling High 10/10/2011 Medications simvastatin (ZOCOR) 20 mg tablet Take 1 tablet (20 mg total) by mouth at bedtime. 1 Active omeprazole (PriLOSEC) [address] capsule Take 1 capsule (20 mg total) by mouth. 0 Active naproxen (NAPROSYN) 500 mg tablet Take 1 tablet (500 mg total) by mouth. 0 Active medical supply, miscellaneous (MISCELLANEOUS MEDICAL SUPPLY MISC) CPAP Inhale into the lungs. 0 Active Active Problems Problem Noted Date Diagnosed Date Kjeb-Rhsep-Gjppplb disease 07/14/2024 Allergic rhinitis 07/14/2024 S/P hip replacement, left 10/04/2021 Overview (05/28/2024): 11/2020 [facility] Obesity (BMI 30.0-34.9) 07/03/2018 Obstructive sleep apnea 05/19/2017 Overview (05/28/2024): [facility] Home Polysomnogram: Date 05/15/2017; AHI 29, Unclassified apneas 0; Obstructive apneas 24; Central apneas 0; Mixed apneas 2; hypopneas 12; average oxygen saturation 95% (lowest 82% without saturations <88% for 5% or more of study) Adjustment disorder with anxiety 06/07/2016 Adjustment disorder with depressed mood 04/15/20 16 GERD (gastroesophageal reflux disease) 5 Chronic sinusitis 04/01/2014 Hyperlipidemia 10/10/2011 Chronic back pain 10/10/2011 Overview (05/28/2024): 07/04- xray spine-minor arthritis changes Hip pain 10/10/2011 Overview (05/28/2024): 08/05-mri hip-mild arthritis with possible osteonecoris Seeing [place]o [place] and was told to wait it out.when becomes severe will get surgery Encounters Date Type Department Care Team Description 01/24/2025 3:45 PM EDT Office Visit Pulmonolgy - [place] [address] [facility] [address] [place] [address] Mino Carrasco MD Obstructive sleep apnea (Primary Dx) 12/09/2024 Telephone Adult [address] [address] Derek Abrams MD Referral (Functional Medicine Insurance Referral) from Last 3 Months Immunizations Name Administration Dates Next Due Influenza, Unspecified 06/09/2020 Tdap Tetanus diptheria acell ular pertussis (Boostrix; Adacel) 7yo and older 06/25/2011 Surgical History Surgery Date Site/Laterality Comments KNEE ARTHROSCOPY PROCEDURE: GA ARTHROSCOPY AID TX SPINE&/FX KNEE W/O FIXJ; COMMENT: R WISDOM TOOTH EXTRACTION PROCEDURE: HISTORICAL WISDOM TEETH EXTRACTION HIP ARTHROPLASTY 11/2020 Left PROCEDURE: HISTORICAL HIP REPLACEMENT Medical History Medical History Date Comments Chronic sinusitis 04/01/2014 DX:Chronic sin usitis Hyperlipidemia 10/10/2011 DX:Hyperlipidemi a Cqaw-Lsolm-Zcpvqen disease 11/26/2011 DX:Le rw-Vmkmf-Aqmzifg disease Allergic rhinitis 10/04/2021 DX:Allergic rh initis GERD (gastroesophageal reflux disease) 5 DX:GERD (gastroesophageal reflux disease) Chronic back pain 10/10/2011 DX:Chronic cornelia k pain; COMMENT: 07/04- xray spine-minor arthritis changes Adjustment disorder with dep ressed mood 04/15/2016 DX:Adjustment disorder with depressed mood Adjustment disorder with anxiety 06/07/2016 DX:Adjustment disorder with anxiety Hip pain 10/10/2011 DX:Hip pain; COM MENT: 08/05-mri hip-mild arthritis with possible osteonecoris [place] and was told to wait it out.when becomes severe will get surgery Obstructive sleep apnea 05/19/2017 DX:Obstr uctive sleep apnea; COMMENT: [facility] Home Polysomnogram: Date 05/15/2017; AHI 29, Unclassified apneas 0; Obstructive apneas 24; Central apneas 0; Mixed apneas 2; hypopneas 12; average oxygen saturation 95% (lowest 82% without saturations <88% for 5% or more of study) Obesity (BMI 30.0-34.9) 07/03/2018 DX:Obesi ty (BMI 30.0-34.9) S/P hip replacement, left 10/04/2021 DX:S/P hip replacement, left; COMMENT: 11/2020 [facility] Family History Medical History Relation Name Comments Hyperlipidemia Father Hyperlipidemia Mother Hypertension Mother seizures Colon cancer Paternal Grandfather later i n life, 70-80 Coronary artery disease Neg Hx Diabetes Neg Hx Relation Name Status Comments Father Alive Mother seizure Paternal Grandfather Social History Tobacco Use Types Packs/Day Years Used Date Smoking Tobacco: Never Smokeless Tobacco: Never Alcohol Use Standard Drinks/Week Comments Yes 0 (1 standard drink = 0.6 oz pur e alcohol) Sex and Gender Information Value Date Recorded Sex Assigned at Not on file Legal Sex Male 10:47 PM EST Gender Identity Not on file Sexual Orientation Not on file Obstetrics History Last Filed Vital Signs Vital Sign Reading Time Taken Comments Blood Pressure 104/64 01/24/2025 3:58 PM EDT Pulse 57 01/24/2025 3:58 PM EDT Temperature 36.3 C (97.3 F) 01/24/2025 3:58 PM EDT Respiratory Rate 16 01/24/2025 3:58 PM EDT Oxygen Saturation 100% 01/24/2025 3:58 PM EDT Inhaled Oxygen Concentration - - Weight 84.5 kg (186 lb 3.2 oz) 01/24/2025 3:58 P M EDT Height 172.7 cm (5' 8 ) 01/24/2025 3:58 PM EDT Body Mass Index 28.31 01/24/2025 3:58 PM EDT Plan of Treatment Health Maintenance Due Date Last Done Comments Hepatitis B Vaccines (1 of 3 - 19+ 3-dose series) 01/23/2004 IPV Vaccines (2 of 3 - Adult catch-up series) 05/05/2007 04/07/2007 Depression Screening 07/28/2022 Social Influencers of Health Screening 07/28/2022 COVID-19 Vaccine (3 - season) 2024 07/03/2021, 09/06/2020 Influenza Vaccine (#1) 2025 , 06/09/2020, 05/12/2020, Additional history exists Cholesterol Screening (Lipid Panel) 11/14/2025 11/14/2020 DTaP,Tdap,and Td Vaccines (5 - Td or Tdap) 07/03/2031 07/03/2021, 06/25/2011, 06/25/2011, Additional history exists Meningococcal ACWY Vaccine Aged Out 03/03/2007 N o longer eligible based on patient's age to complete this topic Varicella Vaccines Aged Out 04/07/2007, 03/03/2007 No longer eligible based on patient's age to complete this topic Hepatitis A Vaccines Completed 11/02/2007, 03/03/20 07 HIV Screening Completed 05/07/2019 Hepatitis C Screening Completed 05/07/2019 Pneumococcal Vaccine: Pediatrics (0 to 5 Years) and At-Risk Patients (6 to 49 Years) Aged Out 07/03/2021 No longer eligible based on patient's age to complete this topic HIB Vaccines Aged Out No longer eligi ble based on patient's age to complete this topic HPV Vaccines Aged Out No longer eligi ble based on patient's age to complete this topic MMR Vaccines Aged Out No longer eligi ble based on patient's age to complete this topic Meningococcal B Vaccine Aged Out No l onger eligible based on patient's age to complete this topic RSV Immunization Patients Under 20 months Aged Out No longer eligible based on patient's age to complete this topic Procedures Procedure Name Priority Date/Time Associated Diagnosis Comments LIPID PANEL Routine 11/14/2020 HEPATITIS C SCREENING Routine 05/07/2019 HIV SCREENING Routine 05/07/2019 from Last 3 Months or Most Recently Relevant to Health Maintenance Results * (ABNORMAL) Lipid panel (11/14/2020) [facility] LDL/HDL Ratio 7(A) 0 - 4 Triglycerides 225(A) 0 - 150 mg/dL Cholesterol 236(A) 0 - 200 mg/dL HDL 33(A) >=40 mg/dL LDL Cholesterol 158(A) 0 - 100 mg/dL Blood Venous blood specimen / Unknown Historical Provider LAB BLOOD ORDERABLES Linda l Result * HIV Screening (05/07/2019) [facility] HIV Screening abstracted [facility] Provider HEALTH MAINTENANCE Final Result * Hepatitis C Screening (05/07/2019) [facility] Hepatitis C Screening abstracted [facility] Provider HEALTH MAINTENANCE Final Result from Last 3 Months or Most Recently Relevant to Health Maintenance Insurance [facility] Care Teams Roll Tester Relationship Specialty Start Date End Date Vince Cancino MD [address] [place] [address] [address] RICHARD Dodd PCP - General Internal Medicine 01/27/25
--- NOTE | 2025-03-04 15:05 | MHC.PC.OV ---
Intake Visit Reasons: to review labs Intake Note: Telehealth to review labs Harpooner Required: No Allergies amoxicillin (AMOXICILLIN) Allergy (Unknown, Verified 03/04/25 15:05) SWELLING Amoxicillin Allergy (Severe, Uncoded 03/04/25 15:05) Hives Tobacco use date assessed: 03/04/25 Dental Screening Dental Screen Date: 03/04/25 Did you have a dental visit in the last 12 months?: Yes Did you have a dental problem in the last 6 months where you did not have access to dental care?: No Was dental information given to patient?: Patient has dentist HPI HPI Comments History of Present Illness Details 40 y/o M with NINO on CPAP, low wbc, elevated cholesterol Social: [employer] Surgery: R knee ACL repair, L hip replacement Health Maintenance: Tdap thinks [facility] Dr Monique Fritz - manages CPAP History of Present Illness - The patient is a 40-year-old male presenting with abnormal lab results follow-up. - Had labs done by outside provider and wants to review them. See below. He looked info up on internet and bought MVI and Iron. - Mildly low MCHC noted in recent labs, measure of 30.6 g/dL. - Normal hemoglobin, hematocrit, and RBC counts. WBC is normal. Has a hx of leukopenia - Discussion on iron supplementation discouraged; not linked to deficiency Review of Systems - Hematologic: Reports mildly low MCHC. - General: Denies other CBC abnormalities. - Endocrine: Reports pending testosterone level evaluation. Results - Labs: - CBC: Mildly low MCHC of 30.6 g/dL. - Sedimentation rate: WNL - C-reactive protein: WNL Assessment and Plan 1. Mildly low Mean Corpuscular Hemoglobin Concentration (MCHC) - MCHC slightly low; hemoglobin and hematocrit normal. - No iron supplements recommended; risk of excess iron. - Suggested multivitamin use without excessive dose. Telehealth Attestation This visit was conducted via telehealth, and the documentation accurately reflects the encounter performed by audiovisual means. The patient has been explained that this is an interactive (audio/video) telehealth encounter and what that consists of. The patient understands and wishes to proceed. [employer] platform was used. Total time spent caring for the patient today was 6 minutes. This includes time spent before the visit reviewing the chart, time spent during the visit, and time spent after the visit on documentation, reviewing laboratory results, diagnostic imaging, medications, performing a medically necessary evaluation, counseling on diagnoses, care coordination, ordering appropriate tests, ordering appropriate medications, review of tests performed by other providers, reporting test results with the patient, communication with other healthcare providers. [facility] Medical History (Updated 02/10/25 @ 12:12 [facility] Arthritis CPAP (continuous positive airway pressure) dependence (~2020) Surgical History (Updated 02/10/25 @ 12:01 by MIKE CamarenaBIRGIT) H/O knee surgery History of hip replacement Family History (Updated 02/10/25 @ 11:42 by Lisseth Hagan MA) Mother Asthma High cholesterol Father Substance abuse Social History (Updated 02/10/25 @ 11:40 by Lisseth Hagan MA) Household Members: Spouse and Children Both parents involved: No Caregiver staying overnight: No Housing: House Are you a primary child care center administrator to a significant other at home: Yes Do you presently have visiting nurse or other home services: No 75 years or older and lives alone: No Alcohol intake: never Patient Tobacco Use Status: Never used Tobacco e-Cigarette/Vaping Use: Never Used Second Hand Smoke Exposure: No Current occupational status: employed Current occupation: secretary of police Cognitive needs: No Hearing needs: No Vision needs: No Questionnaire Thrive Questionnaire Date Thrive assessed: 02/03/25 I am a: Patient What is your living situation today?: I have a steady place to live Within the past 12 months, did the food you bought not last and you didn't have the money to get more?: Never true Within the past 12 months, did you worry whether your food would run out before you got money to buy more?: Never true Do you have trouble paying for medicines?: No Do you have trouble getting transportation to medical appointments?: No Do you have trouble paying your heating and electricity bill?: No Do you have trouble taking care of your child, family member or friend?: No Do you have trouble with day-to-day activities such as bathing, preparing meals, shopping, managing finances, etc.?: No Are you currently unemployed and looking for a job?: No Are you interested in more education?: No Please select the resources that you would like help with: None Currently or been in a relationship where the following occur: No concerns reported THRIVE Score: 0 REMY-7 AMB Questionnaire REMY-7 Date REMY - 7 assessed: 02/10/25 Source: Developed by Drs. Chino Song, Dee Brock, Shine Gomez and colleagues, with an educational jean pierre from [employer]. Physical exam (Primary Care) Tobacco/Smoking Status: Tobacco use Status Tobacco use date assessed 03/04/25 03/04/25 15:06 Patient Tobacco Use Status Never used Tobacco 03/04/25 15:06 e-Cigarette/Vaping Use Never Used 03/04/25 15:06 Thrive Assessment: Date of Thrive Assessment Date Thrive assessed 02/03/25 03/04/25 15:06 Currently or been in a relationship where the following occur: No concerns reported Telehealth Telehealth Telehealth Platform: [facility] Location of provider rendering services: practice address Location of patient: address on file Patient Identification confirmed using: Name, : Yes Telehealth method: voice only Patient verbally consented to treatment: Yes Patient verbally consented to billing insurance company: Yes Patient informed of any privacy concerns related to visit: Yes Minutes spent on Phone/Video with Pt.: 4 Results Reviewed Results Reviewed: Coding Level of Care Code Est Pt Level 1 (24412) Complex EM visit Add On G2211 Diagnoses Person consulting for explanation of examination or test findings Z71.2 Assessment & Plan Assessment & Plan (1) Person consulting for explanation of examination or test findings: Code(s): Z71.2 - Person consulting for explanation of examination or test findings Plan .
== END 2025-03-04 16:15 | disposition home or self-care (01) ==
LOC: HO.HMCFM 14:56
PROVIDERS: PCP Nurse Practitioner Family; Visit Provider Nurse Practitioner Family
DX: Z71.2 Person consulting for explanation of examination or test findings (principal)

== ENCOUNTER → 2025-03-04 14:56 | Outpatient (BNVA) | payer BC, SELFPAY | PROVIDERS: PCP Nurse Practitioner Family; Visit Provider Nurse Practitioner Family | DX: Z71.2 Person consulting for explanation of examination or test findings (principal) | CPT/HCPCS: 99211 ==

== ENCOUNTER 2025-07-04 18:09 | Emergency (ER) | payer BC, SELFPAY ==
--- NOTE | ~2025-07-04 | XR_ITS ---
CLINICAL HISTORY: pain, injury, swelling 4 views right knee Comparison: None Findings: No fractures or dislocations. Large joint effusion. No significant arthritic change. Remote appearing postoperative changes related to ACL reconstruction are present.. Impression: 1. Large joint effusion. 2. Remote ACL reconstruction. No other significant abnormalities. This document has been electronically signed by: Hever Gregg MD on 07/04/2025 19:28:24
[2025-07-04 18:50] VITALS: BP 142/67; PULSE 75; RESP 16; TEMP 36.6; O2SAT 99; BMI 27.9
--- NOTE | 2025-07-04 18:54 | ED.GENADULT ---
HPI - General Adult General Chief complaint: Extremity Injury, Lower Stated complaint: rt knee swelling Time Seen by Provider: 07/04/25 21:43 Source: patient Limitations: no limitations History of Present Illness ED Provider: Lynn Bryant PA-C HPI narrative: 40-year-old male presents with right knee pain x2 weeks. Patient states she has sustained an injury while exercising at the gym, he has developed swelling of the knee. Denies redness, warmth, fever or inability to range the joint. Patient has not followed up with any of his healthcare providers. Related Data Home Medications ?Medication ?Instructions ?Recorded ?Confirmed No Known Home Meds 02/10/25 02/10/25 Allergies Allergy/AdvReac Type Severity Reaction Status Date / Time amoxicillin (AMOXICILLIN) Allergy Unknown SWELLING Verified 07/04/25 18:52 Amoxicillin Allergy Severe Hives Uncoded 03/04/25 15:05 Review of Systems Review of Systems: Yes all other systems are reviewed and are negative Constitutional: Constitutional: Denies fatigue and Denies fever(s) Musculoskeletal: Musculoskeletal: Reports arthralgias and Reports joint swelling Integumentary/Breasts: Skin/Breast: Denies erythema and Denies skin swelling Endocrine: Endocrine: Denies fatigue PMFSH Past Medical History Attestation statement: The following information was validated with the patient. Medical History (Updated 07/04/25 @ 22:14 by SURESH Maldonado) Arthritis CPAP (continuous positive airway pressure) dependence (~2019) Surgical History (Updated 02/10/25 @ 12:01 by Hedy Barry [facility]) H/O knee surgery History of hip replacement Family History Family History (Updated 02/10/25 @ 11:42 by Lisseth Hagan MA) Mother Asthma High cholesterol Father Substance abuse Social History Social History (Updated 02/10/25 @ 11:40 by Lisseth Hagan MA) Household Members: Spouse and Children Housing: House Are you a primary medicare specialist to a significant other at home: Yes Do you presently have visiting nurse or other home services: No Alcohol intake: never Patient Tobacco Use Status: Never used Tobacco e-Cigarette/Vaping Use: Never Used Second Hand Smoke Exposure: No Advance Directives: No Advance Directives Information Provided: No Do you have a plan to hurt others: No Plan Current occupational status: employed Current occupation: police department secretary Cognitive needs: No Hearing needs: No Vision needs: No Physical Exam ED Vital Signs: Vital Signs - 24 hr 07/04/25 18:50 07/04/25 19:33 Temperature 97.8 F 98.1 F Pulse Rate 75 65 Respiratory Rate 16 16 Blood Pressure 142/67 H 124/75 Pulse Oximetry 99 98 Oxygen Delivery Method Room Air Room Air BMI result Body Mass Index 27.9 Const Other: Alert well-appearing Orientation/consciousness: patient oriented x3 Resp Effort & Inspection: normal respiratory effort Cardio Other: Normal peripheral perfusion Skin Other: Warm dry no rash Neuro General: patient oriented x3, gait normal, no focal motor deficits and CN's II-XI intact bilaterally Extrem Other: No redness or warmth noted of the right knee, it is swollen, most noticeably superior to the patella, full flexion and extension, walking with a normal steady gait Psych Other: Cooperative Course Course Course Narrative: Rapid medical examination performed in triage by Aurora Delaney PA-C: Patient is a 40 year old assigned male at presenting to the emergency department with right knee pain. Patient states several days ago he was doing one leg lifts and his right knee has hurt ever since. Patient states that it is swollen and he'd like some of the fluid drained off of it. Detailed physical exam and review of systems are deferred to the furniture decals inspector. Imaging ordered. Patient placed back in the waiting room pending room availability and results. Medical Decision Making Medical Decision Making MDM Narrative: 40-year-old male presents with right knee pain x2 weeks. Patient states she has sustained an injury while exercising at the gym, he has developed swelling of the knee. Denies redness, warmth, fever or inability to range the joint. Patient has not followed up with any of his healthcare providers. No chronic issues History: Per patient I have considered the following differential diagnoses: Fracture, dislocation, sprain, septic joint, effusion Plan: X-ray ordered from triage, there was no acute bony abnormality no dislocation, the patient has a strain with the effusion. He has no exam findings that are consistent with a septic joint. I relayed to the patient that joint aspiration is not a routine procedure in the emergency room, unless there was evidence of infection, which there was not. He [facility] he will [facility] to schedule an appointment. I have independently reviewed the following tests: Right knee x-ray:4 views right knee Comparison: None Findings: No fractures or dislocations. Large joint effusion. No significant arthritic change. Remote appearing postoperative changes related to ACL reconstruction are present.. Impression: 1. Large joint effusion. 2. Remote ACL reconstruction. No other significant abnormalities. Discharge Plan Discharge Clinical Impression: Effusion of knee joint right Patient Disposition: Home, Self-Care Instructions: Swollen Knee Joint (ED) Additional Instructions: The x-ray of the right knee did not reveal a fracture or dislocation, you do have an effusion. [facility], they can help organize a joint aspiration for you. Prescriptions: No Action No Known Home Meds Print Language: Kuwaiti
[2025-07-04 19:33] VITALS: BP 124/75; PULSE 65; RESP 16; TEMP 36.7; O2SAT 98
--- OUTSIDE RECORDS SUMMARY | 2025-07-04 19:36 | XMS_ITS | Data Portability ---
Author Organization [place] [facility], Allergy Address [address] [place] [address] Care Team Providers Care Fry Cook Name Role Phone BUNNY KELLER Primary Care Provider Assessment Encounter Date Assessment Date Assessment LastModified by Organization Details LastModified Time 06/09/2025 06/09/2025 Mr. Ness is a pleasant 40-year-old male that presents today with sleep concerns. He has a history of prior obstructive sleep apnea with an AHI of 26.4 this was diagnosed a few years back in the interim he has lost about 80 pounds but is still having difficulty with his symptoms. He does use a CPAP intermittently but he is unable to tolerate it. He is interested in discussing potential surgical options for sleep apnea we did discuss options including palliative pharyngoplasty versus uvulectomy versus inspire versus hyoid suspension versus base of tongue resection. Regardless, I do think he needs a drug-induced sleep endoscopy to evaluate his palate especially if he is to consider something like the inspire. I mention that although I have done these before I do not have active certification he would need to see Dr. Amaya for this. - Plan for DISE with Dr. Amaya [email or web address] Not available 06/09/2025 10:56:35 Plan of Treatment Reminders Order Date Submit Date Provider Last Modified By Organization Details Last Modified Time Details Appointments None recorded. Lab None recorded. Referral None recorded. Procedures drug-induc ed sleep endoscopy (SURG) 2024 025 [email or web address] Not available 14:12:42 Surgeries None recorded. Imaging None recorded. Medication Orders None recorded. Patient TargetsNo targets recorded. Patient InstructionsNo instructions recorded. Reason for Referral None Reported. Problems Name Problem SNOMED Code Status Onset Date Resolution Date Notes Provider Name and Address Organization Details Recorded Time Chronic back pain 263628628 Active 2011 Felicia vera [place] [facility] 5 10:18:09 Pain of hip region 44650356 Active 2011 Felicia vera [place] [facility] 10:18:10 Hyperlipi demia 74426157 Active 2011 Felicia vera [place] [facility] 5 10:18:10 Chronic sinusitis 66987733 Active 2013 Felicia vera [facility] 10:18:09 Gastroeso phageal reflux disease 189687546 Active 2014 Felicia vera [facility] 10:18:09 Posterior rhinorrhe a 97171385 Active 2015 Postnasal drip; Note: Date Diagnosed : 09/18/2015 11:16 AM (R09.82) Not Available [facility] 4 03:25:23 Adjustmen t disorder with depressed mood 78970668 Active 2015 Felicia vera [facility] 5 10:18:10 Adjustmen t disorder with anxious mood 50316029 Active 2015 Felicia vera [facility] 5 10:18:10 Obstructi ve sleep apnea syndrome 36558185 Active 2016 Sergei Zarate, [address] [address], [place], [address] , [place] [facility] 5 10:56:41 Obese class I 98203826401 4107 Active 2017 Felicia vera [facility] 5 10:18:09 Chronic rhinitis 05242714 Active 2019 Chronic rhinitis; Note: Date Diagnosed : 10/14/2019 10:28 AM (J31.0) Not Available [facility] 4 03:25:23 History of repair of hip joint 658522743 Active 2021 Felicia vear [place] [facility] 10:18:10 Allergic rhinitis 11214220 Active 2023 Felicia vera [place] [facility] 5 10:18:10 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 Procedures Surgical History Date Name Laterality Status Provider Name and Address Organization Details Recorded Time total replacement of hip completed Felicia Gillespie [facility] 06/09/2025 10:25:45 arthroscopy of knee completed Felicia Gillespie [place] [facility] 06/09/2025 10:26:13 extraction of wisdom tooth completed Felicia Gillespie [facility] 06/09/2025 10:26:20 Imaging Results None recorded. Procedure Notes None recorded. Medical Equipment None Reported. Allergies Allergen ID Allergen Name Allergen Category Reaction Reaction Severity Criticality Documentation Date Start Date Code Code System Note Provider Name and Address Organization Details Recorded Time 67428 amoxicill in medicatio n swelling Not available Not available 01/06/20242011 723 RxNorm Felicia vera [facility] 10:17:58 Medications Name Sig Start Date Stop Date Status Note LastModified by Organization Details LastModified Time doxycycli ne hyclate 100 mg capsule TAKE 1 CAPSULE BY MOUTH TWICE A DAY FOR 10 DAYS 06/08 completed Not Available Not Available Not Available clindamyc in HCl 150 mg capsule TAKE 4 CAPSULES BY MOUTH 1 HOUR BEFORE DENTAL TREATMEN T active Not Available Not Available No t Available simvastat in 20 mg tablet 1 {tbl} by oral route. 06/08 completed Not Available Not Available Not Available omeprazol e 20 mg capsule,d elayed release 20 mg by oral route. 06/08 completed Not Available Not Available Not Available budesonid e 0.5 mg/2 mL suspensio n for nebulizat ion Inhale 1 vial twice a day 06/08 completed Medicati on ID: [id number] D uration Value: 90 Prescri bed By Name: Sammy Au MD Brand Name: sharon vela Send Method: E-Prescr ibed Sub s Allowed: subs OK Speci al Instruct ion: use 1 vial each nostril twice daily Me dication GenericN mercedez: budesoni de Not Available Not Available Not Available diclofena c sodium 75 mg tablet,de layed release TAKE 1 TABLET BY MOUTH TWICE A DAY active Not Available Not Available No t Available mupirocin 2 % topical ointment APPLY TOPICALL Y 3 TIMES A DAY FOR 7 DAYS 06/08 completed Not Available Not Available Not Available fluticaso ne propionat e 50 mcg/actua tion nasal spray,steven pension 2 puff into both nostrils 06/08 completed Medicati on ID: [id number] D uration Value: 30 Prescri bed By Name: Sammy Au MD Brand Name: fluticas one propiona te Send Method: E-Prescr ibed Sub s Allowed: subs OK Medic ationGen ericName : fluticas one propiona te Not Available Not Available Not Available naproxen 500 mg tablet 500 mg by oral route. 06/08 completed Not Available Not Available Not Available testoster one cypionate 200 mg/mL intramusc ular syringe 0.4 mg twice a week by intramus c. route. 2024 active Not Available Not Available Not Avai lable Vitals Date Recorded Body height Body weight Provider Name and Address Organization Details Last Updated DateTime 06/09/2025 172.72 cm 20622.18 g Felicia Gillespie [place] [facility] 06/09/2025 10:19:37 Social History Question Answer Notes LastModified by Organizat ion Details LastModified Time Tobacco Smoking Status Never Smoker Felicia vera [place] [facility] 06/09/2025 10:18:52 What Type Of Cloth Desizing Range Tender Do You Use? DaycarePreschool [email or web address] Information not available 06/09/2025 Do You Have Any Pets? Yes Information not available 06/09/2025 Are You Passively Exposed To Smoke? No [email or web address] Information not available 06/09/2025 Are There Any Smokers In Your House? No [email or web address] Information not available 06/09/2025 Sex: Unknown Functional Status Question Answer Note LastModified by Organization Details LastModified Time Do you use any illicit or recreational drugs? No [email or web address] Information not available 06/09/2025 Do you or have you ever used any other forms of tobacco or nicotine? No [email or web address] Information not available 06/09/2025 What is your level of alcohol consumption? None [email or web address] Information not available 06/09/2025 What type of noise exposure are you exposed to? noExposureToExcessiveNoise [email or web address] Infor mation not available 06/09/2025 Mental Status None recorded. Family History Nothing Reported. Medical History Condition Response Allergies/Hayfever N Heart Problems N Anxiety N Tonsil Infections N Emphysema N Migraines N Thyroid Problems N COPD N Depression N Developmental Delay N Glaucoma N Nasal or Sinus Problems N Anemia N Immune System Disorder N Anesthesia Complications N Heart Attack ([place]) N Other Skin Condition N Diabetes N Rhinitis N Bleeding Disorder N Food Allergy N Hearing Loss N Arthritis Y Hyperlipidemia N Cancer N Stroke N Dementia N Nasal polyps N Asthma N Sleep Disorder Y High Cholesterol Y GERD/Reflux Y Liver Disease N Headaches N Fibromyalgia N Hypertension N Speech Delay N Kidney Disease N Immunizations Vaccine Type Date Status Note Provider Nam e and Address Organization Details Recorded Time influenza, unspecified formulation 06/09/2020 completed Felicia vera [place] [facility] 06/09/2025 10:18:15 Tdap 06/25/2011 completed Felicia vera [place] [facility] 06/09/2025 10:18:15 Past Encounters Encounter ID Performer Location Encounter Start Date Encounter Closed Date Diagnosis/Indication Diagnosis SNOMED-CT Code Diagnosis ICD10 Code Diagnosis IMO Codes Diagnosis Note [id number] Sergei Zarate, DO [facility] [address] [address] 06/09/2025 10:00:55 06/09/2025 11:15:29 Obstructive sleep apnea syndrome 49476186 G47.33 [id number] Health Concerns Section Related Observation LastModified by Organization Detai ls LastModified Time None Recorded Concern Status LastModified by Organization Details LastModified Time None Recorded Advance Directives Directive None Recorded Payers Insurance Date Sequence Insurance Name Policy Number Policy Bustos Covered Member ID Bustos Member ID Guarantor Name 06/09/2025 1 [facility] [id number] Wesly Ness [id number] Wesly Ness 06/14/2025 1 [facility] [id number] Phyllis Hinojosa Grover [id number] Wesly Ness Notes Date Note Type Note Provider Name and Address Organization Details Recorded Time 06/09/2025 text/html ROS as noted in the HPI The patient presents today for sleep-related concerns. This has been going and progressed for years. Prior NINO, had a at stop eye, yesterday multiple intermittent CPAP use, Has lost 80 lbs since then. but feels hes mildly better after weight loss. Improved headaches. They endorse poor sleep qualityThey endorse daytime fatigueThey deny frequent nighttime awakeningsThey endorse snoringThey endorse chronic globus sensationThey deny witnessed apneasThey deny recent weight gain Prior polysomnogram? Yes, with an AHI of: 28Severe per patient ddx years ago.Prior sleep surgery? NonePrior Neurologic diseases? None Sergei Zarate, DO [address], [address], [place] [facility] 06/09/2025 10:57:38
--- OUTSIDE RECORDS SUMMARY | 2025-07-04 19:36 | XMS_ITS | Continuity of Care Document ---
Author Organization [place] [facility], [facility] Address [address] [place] [address] Care Team Providers Care Church History Professor Name Role Phone BUNNY KELLER Primary Care [...] drug-induc ed sleep endoscopy (SURG) 2024 025 [email or web address] [id number] Not available 14:12:42 Surgeries None recorded. Imaging None recorded. Medication Orders None recorded. Patient TargetsNo targets recorded. Patient InstructionsNo instructions recorded. Reason for Referral None Reported. Problems Name Problem SNOMED Code Status Onset Date Resolution Date Notes Provider Name and Address Organization Details Recorded Time Chronic back pain 178510620 Active 2011 Felicia vera [place] [facility] 10:18:09 Pain of hip region 52548622 Active 2011 Felicia vera [place] [facility] 10:18:10 Hyperlipi demia 55951402 Active 2011 Felicia vera [facility] 10:18:10 Chronic sinusitis 14168395 Active 2013 Felicia vera [facility] 10:18:09 Gastroeso phageal reflux disease 153441794 Active 2014 Felicia vera [facility] 10:18:09 Posterior rhinorrhe a 91103899 Active 2015 Postnasal drip; Note: Date Diagnosed : 09/18/2015 11:16 AM (R09.82) Not Available [facility] 4 03:25:23 Adjustmen t disorder with depressed mood 39728333 Active 2015 Felicia vera [facility] 10:18:10 Adjustmen t disorder with anxious mood 53762055 Active 2015 Felicia vera [place] [facility] 10:18:10 Obstructi ve sleep apnea syndrome 50817347 Active 2016 Sergei Zarate, [address] [address], [place], [address] , [place] [facility] 5 10:56:41 Obese class I 50225576461 4107 Active 2017 Felicia vera [facility] 5 10:18:09 Chronic rhinitis 12140908 Active 2019 Chronic rhinitis; Note: Date Diagnosed : 10/14/2019 10:28 AM (J31.0) Not Available [facility] 4 03:25:23 History of repair of hip joint 134036112 Active 2021 Felicia vera [facility] 10:18:10 Allergic rhinitis 48088211 Active 2023 Felicia vera [facility] 5 10:18:10 Juvenile osteochon drosis of lower limb 678513420 Active 2023 Felicia vera [facility] 10:18:09 Problem Notes None recorded. Procedures Surgical History Date Name Laterality Status Provider Name and Address Organization Details Recorded Time total replacement of hip completed Felicia Gillespie [facility] 06/09/2025 10:25:45 arthroscopy of knee completed Felicia Gillespie [facility] 06/09/2025 10:26:13 extraction of wisdom tooth completed Felicia Gillespie [facility] 06/09/2025 10:26:20 Imaging Results None recorded. Procedure Notes None recorded. Medical Equipment None Reported. Allergies Allergen ID Allergen Name Allergen Category Reaction Reaction Severity Criticality Documentation Date Start Date Code Code System Note Provider Name and Address Organization Details Recorded Time 94442 amoxicill in medicatio n swelling Not available Not available 01/06/20242011 723 RxNorm Felicia vera [facility] 10:17:58 Medications Name Sig Start Date Stop [...] a day 06/08 completed Medicati on ID: [id number] D uration Value: 90 Prescri bed By Name: Sammy Au MD Brand Name: [email or web address] de Send Method: E-Prescr ibed Sub s Allowed: [...] both nostrils 06/08 completed Medicati on ID: [id number] D uration Value: 30 Prescri bed By [...] Details Last Updated DateTime 06/09/2025 172.72 cm 83669.18 g Felicia Gillespie [place] [facility] 06/09/2025 10:19:37 Social History Question Answer Notes LastModified by Organizat ion Details LastModified Time Tobacco Smoking Status Never Smoker Felicia vera [place] [facility] 06/09/2025 10:18:52 What Type Of Wine Steward Do You Use? DaycarePreschool [email or web address] Information not available 06/09/2025 Do You Have Any Pets? Yes [email or web address] Information not available 06/09/2025 Are You Passively Exposed To Smoke? No [email or web address] Information not available 06/09/2025 Are There Any Smokers In Your House? No [email or web address] Information not available 06/09/2025 Sex: Unknown Functional Status Question Answer Note LastModified by Organization Details LastModified Time Do you use any illicit or recreational drugs? No [email or web address] Information not available 06/09/2025 Do you or have you ever used any other forms of tobacco or nicotine? No [email or web address] Information not available 06/09/2025 What is your level of alcohol consumption? None [email or web address] Information not available 06/09/2025 What type of noise exposure are you exposed to? noExposureToExcessiveNoise [email or web address] Infor mation not available 06/09/2025 Mental Status None recorded. Family History Nothing Reported. Medical History Condition Response Allergies/Hayfever N Heart Problems N Anxiety N Tonsil Infections N Emphysema N Migraines N Thyroid Problems N Depression N COPD N Developmental Delay N Glaucoma N Nasal or Sinus Problems N Anemia N Immune System Disorder N Anesthesia Complications N Heart Attack ([place]) N Other Skin Condition N Diabetes N [...] vera [place] - [facility] 06/09/2025 10:18:15 Tdap 06/25/2011 completed Felicia vera [place] [facility] 06/09/2025 10:18:15 Past Encounters Encounter ID Performer Location Encounter Start Date Encounter Closed Date Diagnosis/Indication Diagnosis SNOMED-CT Code Diagnosis ICD10 Code Diagnosis IMO Codes Diagnosis Note [id number] Sergei Zarate, DO [facility] [address] [address] 06/09/2025 10:00:55 06/09/2025 11:15:29 Obstructive sleep apnea syndrome 46571714 G47.33 2691688 Health Concerns Section Related Observation LastModified by Organization Detai ls LastModified Time None Recorded Concern Status LastModified by Organization Details LastModified Time None Recorded Payers Encounter Date Sequence Insurance Name Policy Number Policy Bustos Covered Member ID Bustos Member ID Guarantor Name 06/09/2025 1 [place] [facility] [id number] Phyllis Hinojosa Grover [id number] Wesly Ness Notes Date Note Type Note [...] NonePrior Neurologic diseases? None Sergei Zarate, DO [address] [place] [address],[address] [address], [place], [address], [place] [facility] 06/09/2025 10:57:38
--- OUTSIDE RECORDS SUMMARY | 2025-07-04 19:36 | XMS_ITS | Clinical Summary ---
Author Organization [facility] Address [address] [place] [address] Phone Care Team Providers Care Solar Project Coordination Specialist Name Role Phone Vince Cancino MD Primary Care Provider [phone] Allergies Active Allergy Reactions Criticality Noted Date [...] Active Problems Problem Noted Date Diagnosed Date Xslb-Btufj-Ooslvko disease 07/14/2024 Allergic rhinitis 07/14/2024 S/P hip replacement, left 10/04/2021 Overview (05/28/2024): 11/2020 [facility] Obesity (BMI 30.0-34.9) 07/03/2018 Obstructive sleep apnea 05/19/2017 Overview (05/28/2024): [facility] Home Polysomnogram: Date 05/15/2017; AHI 29, Unclassified [...] arthritis with possible osteonecoris Seeing [place]o [place] and was told to wait it out.when becomes severe will get surgery Immunizations Immunization Administration Dates Next Due Influenza, Unspecified 06/09/2020 Tdap Tetanus diptheria acell ular pertussis (Boostrix; Adacel) 7yo and older 06/25/2011 Surgical History Surgery Date Site/Laterality Comments KNEE ARTHROSCOPY PROCEDURE: SD ARTHROSCOPY AID TX SPINE&/FX KNEE W/O FIXJ; COMMENT: R WISDOM TOOTH EXTRACTION PROCEDURE: HISTORICAL WISDOM TEETH EXTRACTION HIP ARTHROPLASTY 11/2020 Left PROCEDURE: HISTORICAL HIP REPLACEMENT Medical History Medical History Date Comments Chronic sinusitis 04/01/2014 DX:Chronic sin usitis Hyperlipidemia 10/10/2011 DX:Hyperlipidemi a Xeaj-Getlt-Kuypixg disease 11/26/2011 DX:Le be-Sboxc-Keszbky disease Allergic rhinitis 10/04/2021 DX:Allergic rh initis [...] arthritis with possible osteonecoris [place] and was told to wait it out.when becomes severe will get surgery Obstructive sleep apnea 05/19/2017 DX:Obstr uctive sleep apnea; COMMENT: [facility] Home Polysomnogram: Date 05/15/2017; AHI 29, Unclassified [...] 3 - Adult catch-up series) 05/05/2007 04/07/2007 HPV Vaccines (1 - 3-dose SCDM series) 01/23/2012 Social Influencers of Health Screening 07/28/2022 Depression Screening 08/25/2024 COVID-19 Vaccine (3 - 2025-26 season) 2025 07/03/2021, 09/06/2020 Influenza Vaccine (#1) 2025 , 06/09/2020, 05/12/2020, Additional history exists Cholesterol Screening (Lipid Panel) 11/14/2025 11/14/2020 DTaP,Tdap,and Td Vaccines (5 - Td or Tdap) 07/03/2031 07/03/2021, 06/25/2011, 06/25/2011, Additional history exists RSV Immunization Adult Patients (1 - 1-dose 75+ series) 01/23/2060 Meningococcal ACWY Vaccine Aged Out 03/03/2007 N o longer eligible based on patient's age to complete this topic Varicella Vaccines Aged Out 04/07/2007, 03/03/2007 No longer eligible based on patient's age to complete this topic Hepatitis A Vaccines Completed 11/02/2007, 03/03/20 HIV Screening Completed 05/07/2019 Hepatitis C Screening [...] Maintenance Results * (ABNORMAL) Lipid panel (11/14/2020) LDL/HDL Ratio 7(A) 0 - 4 Triglycerides 225(A) 0 - 150 mg/dL Cholesterol 236(A) 0 - 200 mg/dL HDL 33(A) >=40 mg/dL LDL Cholesterol 158(A) 0 - 100 mg/dL Blood Venous blood specimen / Unknown Result [facility] Historical Provider LAB BLOOD ORDERABLES Linda l Result * HIV Screening (05/07/2019) HIV Screening abstracted [facility] Provider HEALTH MAINTENANCE Final Result * Hepatitis C Screening (05/07/2019) Hepatitis C Screening abstracted Historical Provider HEALTH MAINTENANCE Final Result from Last 3 Months or Most Recently Relevant to Health Maintenance [place] [id number] [facility] Care Teams Solar Project Coordination Specialist Relationship Specialty Start Date End Date Vince Cancino MD [address] [place] [address] Dr Robert Dodd MA PCP - General Internal Medicine 01/27/25
[2025-07-04 22:17] VITALS: BP 124/75; PULSE 65; RESP 16; TEMP 36.7; O2SAT 98
== END 2025-07-04 22:18 | disposition home or self-care (01) ==
PROVIDERS: Emergency Provider Emergency Medicine; PCP Nurse Practitioner Family
DX: M25.461 Effusion, right knee (principal); M25.561 Pain in right knee; R60.0 Localized edema
CPT/HCPCS: 73564; 99282; 99283

== ENCOUNTER → 2025-07-04 18:55 | Outpatient (BNV) | payer BC, SELFPAY | PROVIDERS: PCP Nurse Practitioner Family; Visit Provider Radiology Diagnostic Radiology | DX: M25.461 Effusion, right knee (principal) | CPT/HCPCS: 73564 ==

== ENCOUNTER 2025-07-09 20:53 | Emergency (ER) | payer BC, OTHER, SELFPAY ==
--- NOTE | ~2025-07-09 | XR_ITS ---
CLINICAL HISTORY: pain 4 view right knee Comparison: Knee radiograph 07/04/2025 Findings: No acute or displaced fracture. No subluxation. Postop changes following ACL reconstruction. Mild tricompartmental osteoarthritis. No significant joint space narrowing. Suprapatellar knee joint effusion. Impression: 1. No fracture or subluxation. 2. ACL reconstruction. 3. Moderate joint effusion, increased compared to prior exam. If clinically indicated, consider CT or MRI for further evaluation. 4. Additional findings as above. This document has been electronically signed by: Vasquez Richardson MD on 07/09/2025 22:20:00
[2025-07-09 21:02] VITALS: BP 137/80; PULSE 67; RESP 20; TEMP 36.6; O2SAT 98; BMI 28.1
--- OUTSIDE RECORDS SUMMARY | 2025-07-09 21:26 | XMS_ITS ---
Author Name [facility] Organization Unknown Care Team Organization Name Specialty Phone Email Start Date End Da te [facility] JOHNATHAN WEST Primary Care 05/01/2023 04/12/2024 [facility] Termed, PROVIDER Primary Care 07/02/202203/25
--- OUTSIDE RECORDS SUMMARY | 2025-07-09 21:26 | XMS_ITS | Clinical Summary ---
Author Organization [address] [facility] Address [address] [place] [address] Phone Care Team Providers Care Elevator Examiner And Adjuster Name Role Phone Vince Cancino MD Primary Care Provider [phone] Allergies Active Allergy Reactions Criticality Noted Date [...] Active Problems Problem Noted Date Diagnosed Date Lhzd-Vkfcy-Luzzeqq disease 07/14/2024 Allergic rhinitis 07/14/2024 S/P hip replacement, left 10/04/2021 Overview (05/28/2024): 11/2020 [facility] Obesity (BMI 30.0-34.9) 07/03/2018 Obstructive sleep apnea 05/19/2017 Overview (05/28/2024): [facility] Home Polysomnogram: Date 05/15/2017; AHI 29, [...] arthritis with possible osteonecoris Seeing [place]o [place] and was told to wait it out.when becomes severe will get surgery Immunizations Immunization Administration Dates Next Due Influenza, Unspecified 06/09/2020 Tdap Tetanus diptheria acell ular pertussis (Boostrix; Adacel) 7yo and older 06/25/2011 Surgical History Surgery Date Site/Laterality Comments KNEE ARTHROSCOPY PROCEDURE: [place] ARTHROSCOPY AID [place] SPINE&/FX KNEE W/O FIXJ; COMMENT: R WISDOM TOOTH EXTRACTION PROCEDURE: HISTORICAL WISDOM TEETH EXTRACTION HIP ARTHROPLASTY 11/2020 Left PROCEDURE: HISTORICAL HIP REPLACEMENT Medical History Medical History Date Comments Chronic sinusitis 04/01/2014 DX:Chronic sin usitis Hyperlipidemia 10/10/2011 DX:Hyperlipidemi a Xuhl-Lsqem-Dwjcjrl disease 11/26/2011 DX:Le pe-Cdlle-Horkkbg disease Allergic rhinitis 10/04/2021 DX:Allergic rh initis [...] arthritis with possible osteonecoris [place] and was told to wait it out.when becomes severe will get surgery Obstructive sleep apnea 05/19/2017 DX:Obstr uctive sleep apnea; COMMENT: [facility] Home Polysomnogram: Date 05/15/2017; AHI 29, [...] Blood Venous blood specimen / Unknown Result [facility] Historical Provider LAB BLOOD ORDERABLES Linda l Result * HIV Screening (05/07/2019) HIV Screening abstracted [facility] Provider HEALTH MAINTENANCE Final Result * Hepatitis C Screening (05/07/2019) Hepatitis C Screening abstracted Historical Provider HEALTH MAINTENANCE Final Result from Last 3 Months or Most Recently Relevant to Health [place] [id number] [facility] Care Teams Elevator Examiner And Adjuster Relationship Specialty Start Date End Date Vince Cancino MD [address] [place] [address] Dr Robert Dodd [place] PCP - General Internal Medicine 01/27/25
--- OUTSIDE RECORDS SUMMARY | 2025-07-09 21:26 | XMS_ITS | Continuity of Care Document ---
Author Organization [place] [facility], [facility] Address [address] [place] [address] Care Team Providers Care Cigarette Carton Sealer Name Role Phone BUNNY KELLER Primary Care [...] drug-induc ed sleep endoscopy (SURG) 2024 025 SON Not available 04:17:13 Surgeries None recorded. Imaging None recorded. Medication Orders None recorded. Patient TargetsNo targets recorded. Patient InstructionsNo instructions recorded. Reason for Referral None Reported. Problems Name Problem SNOMED Code Status Onset Date Resolution Date Notes Provider Name and Address Organization Details Recorded Time Chronic back pain 162652381 Active 2011 Felicia vera [place] - [facility] 10:18:09 Pain of hip region 21842694 Active 2011 Felicia vera [place] [facility] 10:18:10 Hyperlipi demia 99694083 Active 2011 Felicia vera [place] [facility] 10:18:10 Chronic sinusitis 49083288 Active 2013 Felicia vera [place] [facility] 10:18:09 Gastroeso phageal reflux disease 434843468 Active 2014 Felicia vera [place] [facility] 10:18:09 Posterior rhinorrhe a 78732112 Active 2015 Postnasal drip; Note: Date Diagnosed : 09/18/2015 11:16 AM (R09.82) Not Available [facility] 4 03:25:23 Adjustmen t disorder with depressed mood 97392495 Active 2015 Felicia vera [place] [facility] 10:18:10 Adjustmen t disorder with anxious mood 95516939 Active 2015 Felicia vera [place] [facility] 5 10:18:10 Obstructi ve sleep apnea syndrome 96854609 Active 2016 Sergei Zarate, [place] [address], [place], [address] , [place] - [facility] 5 10:56:41 Obese class I 45339214695 4107 Active 2017 Felicia vera [place] [facility] 5 10:18:09 Chronic rhinitis 58498380 Active 2019 Chronic rhinitis; Note: Date Diagnosed : 10/14/2019 10:28 AM (J31.0) Not Available [facility] 4 03:25:23 History of repair of hip joint 627430908 Active 2021 Felicia vera [facility] 10:18:10 Allergic rhinitis 15999568 Active 2023 Felicia vera [place] [facility] 5 10:18:10 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 Procedures Surgical History Date Name Laterality Status Provider Name and Address Organization Details Recorded Time total replacement of hip completed Felicia Gillespie [facility] 06/09/2025 10:25:45 arthroscopy of knee completed Felicia Glilespie [facility] 06/09/2025 10:26:13 extraction of wisdom tooth completed Felicia Gillespie [facility] 06/09/2025 10:26:20 Imaging Results None recorded. Procedure Notes None recorded. Medical Equipment None Reported. Allergies Allergen ID Allergen Name Allergen Category Reaction Reaction Severity Criticality Documentation Date Start Date Code Code System Note Provider Name and Address Organization Details Recorded Time 37703 amoxicill in medicatio n swelling Not available Not available 01/06/20242011 723 RxNorm Felicia vera [facility] 10:17:58 Medications Name Sig Start Date [...] a day 06/08 completed Medicati on ID: [id number] D uration Value: 90 Prescri bed By [...] both nostrils 06/08 completed Medicati on ID: [id number] D uration Value: 30 Prescri bed By [...] Details Last Updated DateTime 06/09/2025 172.72 cm 39896.18 g Felicia Gillespie [place] - [facility] 06/09/2025 10:19:37 Social History Question Answer Notes LastModified by Organizat ion Details LastModified Time Tobacco Smoking Status Never Smoker Felicia vera [place] [facility] 06/09/2025 10:18:52 What Type Of 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 Yes [email or web address] Information not available 06/09/2025 Are You Passively Exposed To Smoke? No [email or web address] Information not available 06/09/2025 Are There Any Smokers In Your House? No [email or web address] Information not available 06/09/2025 Sex: Unknown Functional Status Question Answer Note LastModified by Organization Details LastModified Time Do you use any illicit or recreational drugs? No [email or web address] Information not available 06/09/2025 Do you or have you ever used any other forms of tobacco or nicotine? No [email or web address] Information not available 06/09/2025 What is your level of alcohol consumption? None [email or web address] Information not available 06/09/2025 What type of noise exposure are you exposed to? noExposureToExcessiveNoise [email or web address] Infor mation not available 06/09/2025 Mental Status None recorded. Family History Nothing Reported. Medical History Condition Response Tonsil Infections N Emphysema N Depression N COPD N Arthritis Y Cancer N Stroke N Headaches N Fibromyalgia N Kidney Disease N Heart Problems N Anxiety N Migraines N Other Skin Condition N Rhinitis N Bleeding Disorder N Food Allergy N Nasal polyps N Asthma N Sleep Disorder Y GERD/Reflux Y Glaucoma N Nasal or Sinus Problems N Anesthesia Complications N Hearing Loss N High Cholesterol Y Liver Disease N Speech Delay N Allergies/Hayfever N Thyroid Problems N Developmental Delay N Anemia N Immune System Disorder N Heart Attack ([place]) N Diabetes N Hyperlipidemia N Dementia N Hypertension N Immunizations Vaccine Type Date Status Note Provider Nam e and Address Organization Details Recorded Time influenza, unspecified formulation 06/09/2020 completed Felicia vera [place] [facility] 06/09/2025 10:18:15 Tdap 06/25/2011 completed Felicia vera [place] [facility] 06/09/2025 10:18:15 Past Encounters Encounter ID Performer Location Encounter Start Date Encounter Closed Date Diagnosis/Indication Diagnosis SNOMED-CT Code Diagnosis ICD10 Code Diagnosis IMO Codes Diagnosis Note [id number] Sergei Zarate, DO [facility] [address] [address] 06/09/2025 10:00:55 06/09/2025 11:15:29 Obstructive sleep apnea syndrome 97527161 G47.33 5799115 Health Concerns Section Related Observation LastModified by Organization Detai ls LastModified Time None Recorded Concern Status LastModified by Organization Details LastModified Time None Recorded Payers Encounter Date Sequence Insurance Name Policy Number Policy Bustos Covered Member ID Bustos Member ID Guarantor Name 06/09/2025 1 [place] [facility] [id number] Phyllis Hinojosa Grover [id number] Wesly Ness Notes Date Note Type [...] surgery? NonePrior Neurologic diseases? None Sergei Zarate, [address],[place] [address], [place], [address], [place] - [facility] 06/09/2025 10:57:38
--- OUTSIDE RECORDS SUMMARY | 2025-07-09 21:26 | XMS_ITS | Data Portability ---
Author Organization [place] - [facility], [facility]ergy Address [address] [place] [phone] Care Team Providers Care Car Blocker Name Role Phone BUNNY KELLER Primary Care [...] Organization Details Recorded Time Chronic back pain 553202963 Active 2011 Felicia vera [place] [facility] 10:18:09 Pain of hip region 54971634 Active 2011 Felicia vera [facility] 10:18:10 Hyperlipi demia 21928860 Active 2011 Felicia vera [facility] 5 10:18:10 Chronic sinusitis 36568493 Active 2013 Felicia vera [facility] 10:18:09 Gastroeso phageal reflux disease 511625033 Active 2014 Felicia vera [facility] 5 10:18:09 Posterior rhinorrhe a 37667294 Active 2015 Postnasal drip; Note: Date Diagnosed : 09/18/2015 11:16 AM (R09.82) Not Available [facility] 4 03:25:23 Adjustmen t disorder with depressed mood 76738756 Active 2015 Felicia vera [facility] 5 10:18:10 Adjustmen t disorder with anxious mood 51248110 Active 2015 Felicia vera [facility] 5 10:18:10 Obstructi ve sleep apnea syndrome 60162850 Active 2016 Sergei Zarate, [address] [address], [place], [address] , [place] [facility] 5 10:56:41 Obese class I 06324531167 4107 Active 2017 Felicia vera [facility] 5 10:18:09 Chronic rhinitis 44497555 Active 2019 Chronic rhinitis; Note: Date Diagnosed : 10/14/2019 10:28 AM (J31.0) Not Available [facility] 4 03:25:23 History of repair of hip joint 165265511 Active 2021 Felicia vera [place] [facility] 10:18:10 Allergic rhinitis 31550916 Active 2023 Felicia vera [place] [facility] 10:18:10 Juvenile osteochon drosis of lower limb 096315344 Active 2023 Felicia vera [place] [facility] 10:18:09 Problem Notes None recorded. Procedures Surgical History Date Name Laterality Status Provider Name and Address Organization Details Recorded Time total replacement of hip completed Felicia Gillespie [place] [facility] 06/09/2025 10:25:45 arthroscopy of knee completed Felicia Gillespie [place] [facility] 06/09/2025 10:26:13 extraction of wisdom tooth completed Felicia Gillespie [facility] 06/09/2025 10:26:20 Imaging Results None recorded. Procedure Notes None recorded. Medical Equipment None Reported. Allergies Allergen ID Allergen Name Allergen Category Reaction Reaction Severity Criticality Documentation Date Start Date Code Code System Note Provider Name and Address Organization Details Recorded Time 98120 amoxicill in medicatio n swelling Not available Not available 01/06/20242011 723 RxNorm Felicia vera [facility] 10:17:58 Medications Name Sig Start Date [...] a day 06/08 completed Medicati on ID: [id number] D uration Value: 90 Prescri bed By [...] both nostrils 06/08 completed Medicati on ID: [id number] D uration Value: 30 Prescri bed By [...] Details Last Updated DateTime 06/09/2025 172.72 cm 73382.18 g Felicia Gillespie [place] [facility] 06/09/2025 10:19:37 Social History Question Answer Notes LastModified by Organizat ion Details LastModified Time Tobacco Smoking Status Never Smoker Felicia vera [place] [facility] 06/09/2025 10:18:52 What Type Of 3Rd Grade 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 Yes [email or web address] Information not available 06/09/2025 Are You Passively Exposed To Smoke? No [email or web address] Information not available 06/09/2025 Are There Any Smokers In Your House? No [email or web address] Information not available 06/09/2025 Sex: Unknown Functional Status Question Answer Note LastModified by Organization Details LastModified Time Do you use any illicit or recreational drugs? No [email or web address] Information not available 06/09/2025 Do you or have you ever used any other forms of tobacco or nicotine? No [email or web address] Information not available 06/09/2025 What is your level of alcohol consumption? None [email or web address] Information not available 06/09/2025 What type of noise exposure are you exposed to? noExposureToExcessiveNoise [email or web address] Infor mation not available 06/09/2025 Mental Status None recorded. Family History Nothing Reported. Medical History Condition Response Allergies/Hayfever N Heart Problems N Anxiety N Tonsil Infections N Emphysema N Migraines N Thyroid Problems N Glaucoma N Depression N COPD N Developmental Delay N Nasal or Sinus Problems N Anemia N Immune System Disorder N Anesthesia Complications N Heart Attack ([place]) N Other Skin Condition N Diabetes N Rhinitis N Bleeding Disorder N Food Allergy N Arthritis Y Hearing Loss N Hyperlipidemia N Cancer N Stroke N Dementia N Nasal polyps N Asthma N High Cholesterol Y Sleep Disorder Y GERD/Reflux Y Liver Disease N Headaches N Fibromyalgia N Hypertension N Speech Delay N Kidney Disease N Immunizations Vaccine Type Date Status Note Provider Nam e and Address Organization Details Recorded Time influenza, unspecified formulation 06/09/2020 completed Felicia vera [place] [facility] 06/09/2025 10:18:15 Tdap 06/25/2011 completed Felicia vera [place] [facility] 06/09/2025 10:18:15 Past Encounters Encounter ID Performer Location Encounter Start Date Encounter Closed Date Diagnosis/Indication Diagnosis SNOMED-CT Code Diagnosis ICD10 Code Diagnosis IMO Codes Diagnosis Note [id number] Sergei Zarate, DO [facility] [address] [address] 06/09/2025 10:00:55 06/09/2025 11:15:29 Obstructive sleep apnea syndrome 75982897 G47.33 [id number] Health Concerns Section Related Observation LastModified by Organization Detai ls LastModified Time None Recorded Concern Status LastModified by Organization Details LastModified Time None Recorded Advance Directives Directive None Recorded Payers Insurance Date Sequence Insurance Name Policy Number Policy Bustos Covered Member ID Bustos Member ID Guarantor Name 06/09/2025 1 [facility] [id number] Wesly Ness [id number] Wesly Ness 06/14/2025 1 [facility] [place] [id number] Phyllis Hinojosa Grover [id number] Wesly Ness Notes Date Note Type Note [...] Neurologic diseases? None Sergei Zarate, DO [address] [facility],[place] [address], [place], [address], [place] - [facility] 06/09/2025 10:57:38
--- NOTE | 2025-07-09 21:42 | PC.NURSE ---
t/w was called to pt room - requested analgesia. t/w advised pt that he does not have MD sign up at this point and offered protocol analgesia of APAP and IBU. pt declines both at this time, as he takes them all the time for this, they wont do anything . pt advised that provider will have to order any additional form of analgesia. pt verbalizes understanding. call [place] within reach
--- NOTE | 2025-07-09 21:46 | PC.NURSE ---
pt offered ice for right knee, pt declines.
--- NOTE | 2025-07-09 22:29 | ED_ITS ---
HPI - General Adult General Chief complaint: Extremity Injury, Lower Stated complaint: R knee inj/Work inj Time Seen by Provider: 07/09/25 21:56 Source: patient Limitations: no limitations History of Present Illness ED Provider: Lynn Bryant PA-C HPI narrative: 40-year-old male presents with right knee pain. Patient was seen in the emergency department on July 05, at that time he had sprained his knee and sustained an effusion. Patient states his symptoms improved and he has been ambulatory, he has yet to see the orthopedic service. Today while at work, he was walking down steps, when he heard a ?pop? in the medial knee, then developed increased swelling. Patient also developed acute onset low back pain with radiation down right lower extremity. Associated paresthesia. Denies weakness of lower extremity, urinary retention or bowel incontinence. No actual fall sustained today. Related Data Previous Rx's ?Medication ?Instructions ?Recorded ketorolac 10 mg tablet 10 mg PO Q6H PRN pain #20 ta bs 07/09/25 methocarbamol 750 mg tablet 1,500 mg (2 x 750 mg) PO Q 8H PRN 07/09/25 pain, moderate #24 tabs prednisone 20 mg tablet 40 mg (2 x 20 mg) PO DAILY # 8 tabs 07/09/25 Allergies Allergy/AdvReac Type Severity Reaction Status Date / Time amoxicillin (AMOXICILLIN) Allergy Unknown SWELLING Verified 07/09/25 21:04 Amoxicillin Allergy Severe Hives Uncoded 07/09/25 21:04 Review of Systems Review of Systems: Yes all other systems are reviewed and are negative Constitutional: Constitutional: Denies fatigue and Denies fever(s) Musculoskeletal: Musculoskeletal: Reports back pain, Reports arthralgias, Reports joint swelling, Denies muscle weakness, Denies numbness, Reports radiating pain into limb and Reports tingling Neurologic: Denies numbness and Reports tingling Endocrine: Endocrine: Denies fatigue PMF Past Medical History Attestation statement: The following information was validated with the patient. Medical History (Updated 07/09/25 @ 22:38 by SURESH Maldonado) Arthritis CPAP (continuous positive airway pressure) dependence (~2019) Surgical History (Updated 02/10/25 @ 12:01 by MIKE Camarena-) H/O knee surgery History of hip replacement Family History Family History (Updated 02/10/25 @ 11:42 by Lisseth Hagan MA) Mother Asthma High cholesterol Father Substance abuse Social History Social History (Updated 02/10/25 @ 11:40 by Lisseth Hagan MA) Household Members: Spouse and Children Housing: House Are you a primary health care marketing specialist to a significant other at home: Yes Do you presently have visiting nurse or other home services: No Alcohol intake: never Patient Tobacco Use Status: Never used Tobacco e-Cigarette/Vaping Use: Never Used Second Hand Smoke Exposure: No Advance Directives: No Advance Directives Information Provided: No Do you have a plan to hurt others: No Plan Current occupational status: employed Current occupation: police department secretary Cognitive needs: No Hearing needs: No Vision needs: No Physical Exam ED Vital Signs: Vital Signs - 24 hr 07/09/25 21:02 Temperature 97.9 F Pulse Rate 67 Respiratory Rate 20 Blood Pressure 137/80 Pulse Oximetry 98 Oxygen Delivery Method Room Air BMI result Body Mass Index 28.1 Const Other: Alert well-appearing Orientation/consciousness: patient oriented x3 Resp Effort & Inspection: normal respiratory effort Cardio Other: Normal peripheral perfusion Skin Other: Warm dry no rash Neuro Other: Antalgic gait General: patient oriented x3, no focal motor deficits and CN's II-XI intact bilaterally Extrem Other: Effusion noted superior to the knee located more medially, patient able to flex and extend the knee. Psych Other: Cooperative Medications Administered Discontinued Medications Generic Name Dose Route Start Last Admin Trade Name Freq PRN Reason Stop Dose Admin Ketorolac Tromethamine 15 mg 07/09/25 22:14 07/09/25 22:21 Ketorolac Tromethamine 15 Mg/Ml Vial IM 07/09/25 22:15 15 mg ONCE ONE Administration Methocarbamol 1,500 mg 07/09/25 22:14 07/09/25 22:21 Methocarbamol 750 Mg Tablet PO 07/09/25 22:15 1,500 mg ONCE ONE Administration Medical Decision Making Medical Decision Making MDM Narrative: 40-year-old male presents with right knee pain. Patient was seen in the emergency department on July 05, at that time he had sprained his knee and sustained an effusion. Patient states his symptoms improved and he has been ambulatory, he has yet to see the orthopedic service. Today while at work, he was walking down steps, when he heard a ?pop? in the medial knee, then developed increased swelling. Patient also developed acute onset low back pain with radiation down right lower extremity. Associated paresthesia. Denies weakness of lower extremity, urinary retention or bowel incontinence. No actual fall sustained today. Problem: Known underlying sprain History: Per patient I have considered the following differential diagnoses: Lumbar strain, lumbar radiculopathy, cauda equina, fracture, dislocation, contusion, sprain Plan: X-ray ordered from triage, the effusion is slightly enlarged, however no acute process other than a sprain at this point. The patient needs to follow up with the orthopedic service. Placing him in a knee immobilizer sending with the crutches, we will treat his lumbar radicular symptoms accordingly. To note he has no red flag signs symptoms concerning for cord compression I have independently reviewed the following tests: right knee xray: Impression: 1. No fracture or subluxation. 2. ACL reconstruction. 3. Moderate joint effusion, increased compared to prior exam. If clinically indicated, consider CT or MRI for further evaluation. 4. Additional findings as above. Differential Diagnosis Differential Diagnoses: The differential diagnosis associated with the presentation includes See MDM Admission/Observation Consideration of admission/observation: Escalation of care including admission/observation considered Not applicable Radiology Impression Discussion of test interpretation with radiology: I have reviewed the radiologist's reading. Discharge Plan Discharge Clinical Impression: Right knee sprain, Acute right lumbar radiculopathy, Effusion of knee joint right Patient Disposition: Home, Self-Care Instructions: Knee Sprain (ED), Crutch Instructions (ED), Lumbar Radiculopathy (ED), Swollen Knee Joint (ED) Additional Instructions: There was no change of the knee x-ray from your prior study, the effusion is subtly increased in size. Use the knee immobilizer while up and ambulatory, use the crutches for support. Do not bear weight. Follow up with the orthopedic service as directed, call Friday to schedule an appointment. You were also being treated for lumbar radiculopathy or sciatica. See home care instructions. Take the prednisone as directed this is an anti-inflammatory take it in the morning. Take the ketorolac as directed this is a 2nd anti-inflammatory take it with food. Use the methocarbamol as needed for further pain, this is a muscle relaxant, it will cause drowsiness, do not drive or operate machinery while taking the medication. Follow up with primary care as needed. Prescriptions: New methocarbamol 750 mg tablet 1,500 mg PO Q8H PRN (Reason: pain, moderate) Qty: 24 0RF ketorolac 10 mg tablet 10 mg PO Q6H PRN (Reason: pain) Qty: 20 0RF Rx Instructions: maximum total duration of 5 days from all oral, intranasal, or parenteral formulations, the patient received an intramuscular dose of Toradol here in the emergency room prednisone 20 mg tablet 40 mg PO DAILY Qty: 8 0RF Referrals: Hayden Talley MD [Physician, Orthopedics] Referral Note: Right knee sprain, large effusion, prior ACL repair Stand Alone Forms: Work/School Release Print Language: Belarusian
[2025-07-09 22:57] VITALS: BP 137/80; PULSE 67; RESP 20; TEMP 36.6; O2SAT 98
== END 2025-07-09 22:57 | disposition home or self-care (01) ==
PROVIDERS: Emergency Provider Emergency Medicine
DX: M54.16 Radiculopathy, lumbar region (principal); S83.91XD Sprain of unspecified site of right knee, subsequent encounter; X58.XXXD Exposure to other specified factors, subsequent encounter; M25.461 Effusion, right knee
CPT/HCPCS: 73564; 96372; 99283; 99284; J1885

== ENCOUNTER → 2025-07-09 21:15 | Outpatient (BNV) | payer OTHER, SELFPAY | PROVIDERS: Emergency Provider Emergency Medicine; Visit Provider Radiology Diagnostic Radiology | DX: M25.561 Pain in right knee (principal) | CPT/HCPCS: 73564 ==

== ENCOUNTER → 2025-07-11 08:00 | Outpatient (BNVA) | payer OTHER, SELFPAY | PROVIDERS: Visit Provider Internal Medicine | DX: M23.91 Unspecified internal derangement of right knee (principal); M54.31 Sciatica, right side | CPT/HCPCS: 99202 ==

== ENCOUNTER → 2025-07-18 07:54 | Outpatient (BNVA) | payer OTHER, SELFPAY | PROVIDERS: Visit Provider Internal Medicine | DX: M23.91 Unspecified internal derangement of right knee (principal); M54.31 Sciatica, right side | CPT/HCPCS: 99213 ==

== ENCOUNTER → 2025-07-26 11:18 | Outpatient (BNVA) | payer OTHER, SELFPAY | PROVIDERS: Visit Provider Emergency Medicine | DX: M23.91 Unspecified internal derangement of right knee (principal) | CPT/HCPCS: 99213 ==

== ENCOUNTER 2025-08-04 20:02 | Outpatient (REF) | payer OTHER, SELFPAY ==
--- NOTE | ~2025-08-04 | MR_ITS ---
EXAMINATION: MR KNEE WITHOUT CONTRAST, RIGHT CLINICAL INFORMATION: Pain and effusion COMPARISON: None available. TECHNIQUE: MRI of the knee without contrast was performed using routine sequences on a high-field scanner. FINDINGS: MENISCI: Medial Meniscus: Degeneration in the posterior horn, with tibial articular surface fraying/ill-defined tear. There is superior surface fraying/ill-defined tear of the posterior root. . Lateral Meniscus: Intact LIGAMENTS: Cruciate: Postsurgical changes from prior ACL repair. The ACL graft appears intact. Mild T2 signal in the graft, could reflect mild degenerative changes. No discontinuity or laxity is seen. Intact PCL. Collateral: Intact EXTENSOR MECHANISM: Intact ARTICULAR CARTILAGE/BONE: Patellofemoral Compartment: Mild/moderate arthritis. Foci of chondral fissuring, partial thickness chondral loss. Medial Compartment: There is high-grade/full-thickness chondral loss in the weightbearing femoral condyle measuring 1 x 1.4 cm. Subchondral tibial edema. Lateral Compartment: Focus of chondral thinning and fissuring in the weightbearing femoral condyle. There is edema in the lateral tibial plateau, and the proximal fibular head. This is nonspecific, differential considerations include bone contusion, stress reaction. No fracture plane is seen. JOINT FLUID AND BURSAE: Moderate effusion. Mild synovitis/debris. There is a 4 mm and 5 mm loose body anteriorly. (10:22-23). Small Petit's cyst. MR/MR knee RT wo con IMPRESSION: * Degenerative fraying/ill-defined tear of the medial meniscus anterior horn and anterior root. * Postsurgical changes from ACL repair. Mild T2 signal in the ACL graft, could reflect mild degenerative changes. No tear is identified. * Mild-moderate medial and lateral compartment arthritis. Mild lateral compartment arthritis. Marrow edema in the lateral tibial plateau and the proximal fibular head, nonspecific, could reflect bone contusion, stress reaction. * Moderate effusion. Loose bodies. Mild synovitis/debris. Small Petit's cyst. Electronically signed by: Johnathon Keene MD 08/05/2025 11:55 AM EST
--- OUTSIDE RECORDS SUMMARY | 2025-08-04 23:34 | XMS_ITS | Continuity of Care Document ---
Author Organization [place] - [facility], [facility] Address [address] [place] [address] Care Team Providers Care Cloth Bleaching Range Tender Name Role Phone BUNNY KELLER Primary Care Provider [phone] Assessment Encounter Date Assessment Date Assessment LastModified [...] Details Last Modified Time Details Appointments None recorded . Lab None recorded . Referral None recorded . Procedures drug-ind uced sleep endoscop y (SURG) 2024 025 [email or web address] Not available 13:08:09 Surgeries None recorded . Imaging None recorded . Medication Orders None recorded . Patient TargetsNo targets recorded. Patient InstructionsNo instructions recorded. Reason for Referral None Reported. Problems Name Problem SNOMED Code Status Onset Date Resolution Date Notes Provider Name and Address Organization Details Recorded Time Chronic back pain 819701130 Active 2011 Felicia vera MD - [facility] 10:18:09 Pain of hip region 53333753 Active 2011 Felicia vera [place] - [facility] 10:18:10 Hyperlipi demia 45641208 Active 2011 Felicia vera [facility] 10:18:10 Chronic sinusitis 67179628 Active 2013 Felicia vera [facility] 10:18:09 Gastroeso phageal reflux disease 053793020 Active 2014 eFlicia vera [facility] 10:18:09 Posterior rhinorrhe a 77589623 Active 2015 Postnasal drip; Note: Date Diagnosed : 09/18/2015 11:16 AM (R09.82) Not Available [facility] 4 03:25:23 Adjustmen t disorder with depressed mood 68341516 Active 2015 Felicia vera [facility] 10:18:10 Adjustmen t disorder with anxious mood 64328075 Active 2015 Felicia vera [place] - [facility] 10:18:10 Obstructi ve sleep apnea syndrome 57449361 Active 2016 Sergei Zarate, [address] [address], [place], [address] , [place] - [facility] 5 10:56:41 Obese class I 01384958714 4107 Active 2017 Felicia vera [facility] 5 10:18:09 Chronic rhinitis 00475236 Active 2019 Chronic rhinitis; Note: Date Diagnosed : 10/14/2019 10:28 AM (J31.0) Not Available [facility] 4 03:25:23 History of repair of hip joint 625632231 Active 2021 Felicia vera [facility] 10:18:10 Allergic rhinitis 65138364 Active 2023 Felicia vera [facility] 5 10:18:10 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 Procedures Surgical History Date Name Laterality Status Provider Name and Address Organization Details Recorded Time total replacement of hip completed Felicia Gillespie [facility] 06/09/2025 10:25:45 arthroscopy of knee completed Felicia Gillespie [facility] 06/09/2025 10:26:13 extraction of wisdom tooth completed Felicia Gillespie [facility] 06/09/2025 10:26:20 Imaging Results None recorded. Procedure Notes None recorded. Medical Equipment None Reported. Allergies Allergen ID Allergen Name Allergen Category Reaction Reaction Severity Criticality Documentation Date Start Date Code Code System Note Provider Name and Address Organization Details Recorded Time 11157 amoxicill in medicatio n swelling Not available Not available 01/06/20242011 723 RxNorm Felicia vera [facility] 10:17:58 Medications Name Sig Start Date [...] a day 06/08 completed Medicati on ID: [id number] D uration Value: 90 Prescri bed By [...] both nostrils 06/08 completed Medicati on ID: [id number] D uration Value: 30 Prescri bed By [...] Details Last Updated DateTime 06/09/2025 172.72 cm 34655.18 g Felicia Gillespie [place] - [facility] 06/09/2025 10:19:37 Social History Question Answer Notes LastModified by Organizat ion Details LastModified Time Tobacco Smoking Status Never Smoker Felicia vera [place] - [facility] 06/09/2025 10:18:52 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 Yes [email or web address] Information not available 06/09/2025 Are You Passively Exposed To Smoke? No [email or web address] Information not available 06/09/2025 Are There Any Smokers In Your House? No Information not available 06/09/2025 Sex: Unknown Functional Status Question Answer Note LastModified by Organization Details LastModified Time Do you use any illicit or recreational drugs? No [email or web address] Information not available 06/09/2025 Do you or have you ever used any other forms of tobacco or nicotine? No [email or web address] Information not available 06/09/2025 What is your level of alcohol consumption? None [email or web address] Information not available 06/09/2025 What type of noise exposure are you exposed to? noExposureToExcessiveNoise [email or web address] Infor mation not available 06/09/2025 Mental Status None recorded. Family History Nothing Reported. Medical History Condition Response Allergies/Hayfever N Heart Problems N Anxiety N Tonsil Infections N Emphysema N Migraines N Thyroid Problems N Glaucoma N Depression N COPD N Developmental Delay N Nasal or Sinus Problems N Anemia N Immune System Disorder N Anesthesia Complications N Heart Attack ([place]) N Other Skin Condition N Diabetes N Rhinitis N Bleeding Disorder N Food Allergy N Arthritis Y Hearing Loss N Hyperlipidemia N Cancer N Stroke N Dementia N Nasal polyps N Asthma N Sleep Disorder Y GERD/Reflux Y High Cholesterol Y Liver Disease N Headaches N Fibromyalgia N Hypertension N Speech Delay N Kidney Disease N Immunizations Vaccine Type Date Status Note Provider Nam e and Address Organization Details Recorded Time influenza, unspecified formulation 06/09/2020 completed Felicia vera [place] - [facility] 06/09/2025 10:18:15 Tdap 06/25/2011 completed Felicia vera [place] - [facility] 06/09/2025 10:18:15 Past Encounters Encounter ID Performer Location Encounter Start Date Encounter Closed Date Diagnosis/Indication Diagnosis SNOMED-CT Code Diagnosis ICD10 Code Diagnosis IMO Codes Diagnosis Note [id number] Sergei Zarate, DO [facility] [address] [address] 06/09/2025 10:00:55 06/09/2025 11:15:29 Obstructive sleep apnea syndrome 89409306 G47.33 [id number] Health Concerns Section Related Observation LastModified by Organization Detai ls LastModified Time None Recorded Concern Status LastModified by Organization Details LastModified Time None Recorded Payers Encounter Date Sequence Insurance Name Policy Number Policy Bustos Covered Member ID Bustos Member ID Guarantor Name 06/09/2025 1 [place] [facility] [id number] Phyllis Hinojosa Grover [id number] Wesly Ness Notes Date Note Type [...] NonePrior Neurologic diseases? None Sergei Zarate, DO [address] [place] [address],[address] [address], [place], [address], [place] - [facility] 06/09/2025 10:57:38
--- OUTSIDE RECORDS SUMMARY | 2025-08-04 23:34 | XMS_ITS | Data Portability ---
Author Organization [place] - [facility], Allergy Address [address] [place] [address] Care Team Providers Care Arbitrator Name Role Phone BUNNY KELLER Primary Care [...] Organization Details Recorded Time Chronic back pain 821286656 Active 2011 Felicia vera [place] [facility] 5 10:18:09 Pain of hip region 52994321 Active 2011 Felicia vera [place] [facility] 10:18:10 Hyperlipi demia 47222102 Active 2011 Felicia vera [place] [facility] 5 10:18:10 Chronic sinusitis 59229663 Active 2013 Felicia vera [facility] 10:18:09 Gastroeso phageal reflux disease 808590492 Active 2014 Felicia vera [facility] 10:18:09 Posterior rhinorrhe a 31796219 Active 2015 Postnasal drip; Note: Date Diagnosed : 09/18/2015 11:16 AM (R09.82) Not Available [facility] 4 03:25:23 Adjustmen t disorder with depressed mood 58530355 Active 2015 Felicia vera [facility] 5 10:18:10 Adjustmen t disorder with anxious mood 70923262 Active 2015 Felicia vera [facility] 5 10:18:10 Obstructi ve sleep apnea syndrome 18459400 Active 2016 Sergei Zarate, [address] [address], [place], [address] , [place] - [facility] 5 10:56:41 Obese class I 93410116976 4107 Active 2017 Felicia vera [facility] 5 10:18:09 Chronic rhinitis 27103072 Active 2019 Chronic rhinitis; Note: Date Diagnosed : 10/14/2019 10:28 AM (J31.0) Not Available [facility] 4 03:25:23 History of repair of hip joint 877679019 Active 2021 Felicia vera [place] [facility] 10:18:10 Allergic rhinitis 92574615 Active 2023 Felicia vera [place] [facility] 5 10:18:10 Juvenile osteochon drosis of lower limb 282169178 Active 2023 Felicia vera [place] [facility] 10:18:09 Problem Notes None recorded. Procedures Surgical History Date Name Laterality Status Provider Name and Address Organization Details Recorded Time total replacement of hip completed Felicia Gillespie [facility] 06/09/2025 10:25:45 arthroscopy of knee completed Felicia Gillespie [place] [facility] 06/09/2025 10:26:13 extraction of wisdom tooth completed Felicia Gillespie [facility] 06/09/2025 10:26:20 Imaging Results None recorded. Procedure Notes None recorded. Medical Equipment None Reported. Allergies Allergen ID Allergen Name Allergen Category Reaction Reaction Severity Criticality Documentation Date Start Date Code Code System Note Provider Name and Address Organization Details Recorded Time 95793 amoxicill in medicatio n swelling Not available Not available 01/06/20242011 723 RxNorm Felicia vera [facility] 10:17:58 Medications Name Sig Start Date [...] a day 06/08 completed Medicati on ID: [id number] D uration Value: 90 Prescri bed By [...] both nostrils 06/08 completed Medicati on ID: [id number] D uration Value: 30 Prescri bed By [...] Details Last Updated DateTime 06/09/2025 172.72 cm 10771.18 g Felicia Gillespie [place] - [facility] 06/09/2025 10:19:37 Social History Question Answer Notes LastModified by Organizat ion Details LastModified Time Tobacco Smoking Status Never Smoker Felicia vera [place] - [facility] 06/09/2025 10:18:52 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 Yes [email or web address] Information not available 06/09/2025 Are You Passively Exposed To Smoke? No [email or web address] Information not available 06/09/2025 Are There Any Smokers In Your House? No [email or web address] Information not available 06/09/2025 Sex: Unknown Functional Status Question Answer Note LastModified by Organization Details LastModified Time Do you use any illicit or recreational drugs? No [email or web address] Information not available 06/09/2025 Do you or have you ever used any other forms of tobacco or nicotine? No [email or web address] Information not available 06/09/2025 What is your level of alcohol consumption? None [email or web address] Information not available 06/09/2025 What type of noise exposure are you exposed to? noExposureToExcessiveNoise Infor mation not available 06/09/2025 Mental Status None recorded. Family History Nothing Reported. Medical History Condition Response Allergies/Hayfever N Heart Problems N Anxiety N Tonsil Infections N Emphysema N Migraines N Thyroid Problems N Depression N COPD N Developmental Delay N Glaucoma N Nasal or Sinus Problems N Anemia N Immune System Disorder N Anesthesia Complications N Heart Attack ([place]) N Other Skin Condition N Diabetes N [...] [facility] 06/09/2025 10:18:15 Tdap 06/25/2011 completed Felicia vera [place] - [facility] 06/09/2025 10:18:15 Past Encounters Encounter ID Performer Location Encounter Start Date Encounter Closed Date Diagnosis/Indication Diagnosis SNOMED-CT Code Diagnosis ICD10 Code Diagnosis IMO Codes Diagnosis Note [id number] Sergei Zarate, DO [facility] [address] [address] 06/09/2025 10:00:55 06/09/2025 11:15:29 Obstructive sleep apnea syndrome 64309894 G47.33 [id number] Health Concerns Section Related Observation LastModified by Organization Detai ls LastModified Time None Recorded Concern Status LastModified by Organization Details LastModified Time None Recorded Advance Directives Directive None Recorded Payers Insurance Date Sequence Insurance Name Policy Number Policy Bustos Covered Member ID Bustos Member ID Guarantor Name 06/09/2025 1 [facility] [employer] [facility] [id number] Wesly Ness [id number] Wesly Ness 06/14/[address] [facility] [id number] Phyllis Hinojosa Grover [id number] Wesly Ness Notes Date Note Type Note [...] Neurologic diseases? None Sergei Zarate, DO [address], [address], [place] - [facility] 06/09/2025 10:57:38
--- OUTSIDE RECORDS SUMMARY | 2025-08-04 23:34 | XMS_ITS | Clinical Summary ---
Author Organization [address] [facility] Address [address] [place] [address] Phone Care Team Providers Care Yeast Culture Developer Name Role Phone Vince Cancino MD Primary Care Provider [phone] Allergies Active Allergy Reactions Criticality Noted Date [...] Active Problems Problem Noted Date Diagnosed Date Tdff-Rfffy-Vppftqo disease 07/14/2024 Allergic rhinitis 07/14/2024 S/P hip replacement, left 10/04/2021 Overview (05/28/2024): 11/2020 [facility] Obesity (BMI 30.0-34.9) 07/03/2018 Obstructive sleep apnea 05/19/2017 Overview (05/28/2024): [facility] Home Polysomnogram: Date 05/15/2017; AHI 29, Unclassified [...] arthritis with possible osteonecoris Seeing ortho at [place] in [place] and was told to wait it out.when becomes severe will get surgery Immunizations Immunization Administration Dates Next Due Influenza, Unspecified 06/09/2020 Tdap Tetanus diptheria acell ular pertussis (Boostrix; Adacel) 7yo and older 06/25/2011 Surgical History Surgery Date Site/Laterality Comments KNEE ARTHROSCOPY PROCEDURE: [place] ARTHROSCOPY AID [place] SPINE&/FX KNEE W/O FIXJ; COMMENT: R WISDOM TOOTH EXTRACTION PROCEDURE: HISTORICAL WISDOM TEETH EXTRACTION HIP ARTHROPLASTY 11/2020 Left PROCEDURE: HISTORICAL HIP REPLACEMENT Medical History Medical History Date Comments Chronic sinusitis 04/01/2014 DX:Chronic sin usitis Hyperlipidemia 10/10/2011 DX:Hyperlipidemi a Hbnd-Vnyzo-Ihyjqqu disease 11/26/2011 DX:Le nl-Iwwuq-Uawauhz disease Allergic rhinitis 10/04/2021 DX:Allergic rh initis [...] arthritis with possible osteonecoris Seeing ortho [place] and was told to wait it out.when becomes severe will get surgery Obstructive sleep apnea 05/19/2017 DX:Obstr uctive sleep apnea; COMMENT: [facility] Home Polysomnogram: Date 05/15/2017; AHI 29, Unclassified [...] on file Sexual Orientation Not on file Last Filed Vital Signs Vital Sign Reading [...] Screening 07/28/2022 Depression Screening 08/25/2024 COVID-19 Vaccine ( season) 2025 07/03/2021, 09/06/2020 Influenza Vaccine (#1) [...] * HIV Screening (05/07/2019) HIV Screening abstracted [facility] Provider HEALTH MAINTENANCE Final Result * Hepatitis C Screening (05/07/2019) Hepatitis C Screening abstracted Historical Provider HEALTH MAINTENANCE Final Result from Last 3 Months or Most Recently Relevant to Health Maintenance [place] [phone] [facility] Care Teams Yeast Culture Developer Relationship Specialty Start Date End Date Vince Cancino MD [address] [place] [address] Dr Robert Dodd [place] PCP - General Internal Medicine 01/27/25
== END 2025-08-04 20:03 | disposition home or self-care (01) ==
LOC: HO.MRI 20:02
PROVIDERS: PCP Nurse Practitioner Family; Visit Provider Internal Medicine
DX: M25.461 Effusion, right knee (principal); M25.561 Pain in right knee
CPT/HCPCS: 73721

== ENCOUNTER → 2025-08-04 20:09 | Outpatient (BNV) | payer OTHER, SELFPAY | PROVIDERS: PCP Nurse Practitioner Family; Visit Provider Radiology Diagnostic Ultrasound | DX: M17.11 Unilateral primary osteoarthritis, right knee (principal); M25.461 Effusion, right knee | CPT/HCPCS: 73721 ==